=== PATIENT | female | born 1945 | race Caucasian/White ===

== ENCOUNTER → 2017-02-28 | Outpatient (CLI) | payer BC ==
[~2017-02-28] MED LIST: AMT10 PO; CRG625 PO; CYAN10005 PO; ELCCR115 TOP; LEVO1TAB50 PO; LISI10TA PO; LRS20 PO; LRT5 PO; PRLSR20 PO; ULT/50 PO
--- NOTE | 2017-02-28 16:40 | MAMMOGRAPHY REPORT ---
BILATERAL DIGITAL SCREENING MAMMOGRAM WITH CAD: 02/28/2017 CLINICAL HISTORY: Routine screening. Patient has no complaints. TECHNIQUE: Bilateral CC and MLO views were obtained. Current study was also evaluated with a Comput er Aided Detection (CAD) system. COMPARISON: Comparison is made to exams dated: 09/07/2016 mammogram, 03/07/2016 ultrasound, 6 mammogram, 02/26/2016 mammogram, 02/24/2015 mammogram, and 02/21/2014 mammogram - [facility]. BREAST COMPOSITION: There are scattered areas of fibroglandular density in both breasts. FINDINGS: There is a stable 6 mm nodular asymmetry in the far posterior right breast on the CC view , that appears stable in size dating back to at least 02/21/2014, therefore considered benign. No n ew suspicious mass, architectural distortion or cluster of microcalcifications is seen bilaterally. IMPRESSION: ACR BI-RADS CATEGORY 1: NEGATIVE There is no mammographic evidence of malignancy. A 1 year screening mammogram is recommended. The p atient will receive written notification of the results. Approximately 10% of breast cancers are not detected with mammography. A negative mammographic repor t should not delay biopsy if a clinically suggestive mass is present. Yaona Krishnamurthy M.D. ay/:02/28/2017 15:51:33 Community Pharmacist: Elli SELF)(M), [facility] letter sent: Normal 1/2 BI-RADS Code: ACR BI-RADS Category 1: Negative
== END | disposition home or self-care (01) ==
LOC: C.MAMM 10:28
PROVIDERS: ATTEND Family Medicine
DX: Z12.31 Encounter for screening mammogram for malignant neoplasm of breast (principal)

== ENCOUNTER → 2018-03-01 | Outpatient (CLI) | payer BC ==
--- NOTE | 2018-03-01 14:43 | MAMMOGRAPHY REPORT ---
BILATERAL DIGITAL SCREENING MAMMOGRAM TOMOSYNTHESIS WITH CAD: 03/01/2018 CLINICAL HISTORY: Routine screening. TECHNIQUE: Breast tomosynthesis in addition to standard 2D mammography was performed. Current study was also evaluated with a Computer Aided Detection (CAD) system. COMPARISON: Comparison is made to exams dated: 02/28/2017 mammogram, 02/26/2016 mammogram, 02/24/2015 sujit mogram, 02/21/2014 mammogram, 02/20/2013 mammogram, and 02/20/2012 mammogram - [facility]. BREAST COMPOSITION: There are scattered areas of fibroglandular density in both breasts. FINDINGS: No suspicious masses, calcifications, or areas of architectural distortion are noted in ei ther breast. There has been no significant interval change compared to prior exams. IMPRESSION: ACR BI-RADS CATEGORY 1: NEGATIVE There is no mammographic evidence of malignancy. A 1 year screening mammogram is recommended. The pa tient will receive written notification of the results. Approximately 10% of breast cancers are not detected with mammography. A negative mammographic report should not delay biopsy if a clinically suggestive mass is present. Marni Carbajal M.D. ah/:03/01/2018 12:01:59 Communications Director: Sal BACH(R)(M), [facility] letter sent: Normal 1/2 BI-RADS Code: ACR BI-RADS Category 1: Negative
== END | disposition home or self-care (01) ==
LOC: C.MAMM 11:09
PROVIDERS: ATTEND Family Medicine
DX: Z12.31 Encounter for screening mammogram for malignant neoplasm of breast (principal)

== ENCOUNTER 2023-09-06 09:18 | Observation (INO) ==
[~2023-09-06 09:18] MED LIST changes: -AMT10 PO; -CRG625 PO; -CYAN10005 PO; -ELCCR115 TOP; -LEVO1TAB50 PO; +LIDOCAINE 1% LOCAL 20 ML VIAL ONE; -LISI10TA PO; -LRS20 PO; -LRT5 PO; -PRLSR20 PO; -ULT/50 PO; +VANCOMYCIN HCL 1000MG/20ML VIAL ONE; +WATER, STERILE FOR INJ 10 ML VIAL ONE
--- NOTE | 2023-09-06 12:21 | History & Physical Bridge Note ---
Date of Service September 06, 2023 History & Physical Bridge Note I have examined the patient, reviewed the History & Physical and in the interval since the performance of the History & Physical I have noted the following changes of clinical significance: no changes noted
--- NOTE | 2023-09-06 12:22 | Pre Anesthesia Assessment ---
Date of Service September 06, 2023 Pre Sedation Assessment Vital Signs Pulse Resp BP Pulse Ox O2 Del Method 09/06/23 09:35 66 18 212/104 H 96 Room Air Cardiovascular RRR, no murmur, no edema Respiratory normal respiratory effort, lungs clear to auscultation Pre-Sedation Airway Assessment Smoking Status: Never smoker Hx Sleep Apnea: No Hx Difficult Intubation: No Short, Thick Neck: No Thyromental Distance: < 3.5 Finger Breadths Oral Cavity: + Dentures Mallampati Class: III ASA: ASA3 NPO Status Date of Last Intake of Fluids: 09/05/23 Date of Last Intake of Solid Food: 09/05/23 Procedure Planning Contraindications for Sedation: none Current Medications Reviewed: Yes Notes The planned sedation has been discussed with the patient. Informed Consent was obtained. I have identified the patient, determined the appropriateness of sedation and have assessed the patient immediately prior to the procedure. All medicine(s) and interventions are by my order.
[2023-09-06] MEDS ORDERED: fentaNYL citrate PF 100 MCG/2 ML VIAL ONE (12:23)
[2023-09-06] MEDS ORDERED: MIDAZOLAM HCL 5 MG/ML 1 ML VIAL ONE (12:23)
[2023-09-06] MEDS ORDERED: ceFAZolin 330 MG/ML 1 GM VIAL ONE (12:23)
--- NOTE | 2023-09-06 13:57 | Post Anesthesia Assessment ---
Date of Service September 06, 2023 Post Sedation Assessment Vital Signs Pulse Resp BP Pulse Ox O2 Del Method 09/06/23 09:35 66 18 212/104 H 96 Room Air Recovery Score Activity: Moves 4 extremities Respiration: Deep Breath/Cough Circulation: +/-20% PreAnes Value Consciousness: Fully Awake Oxygen Saturation: > 92% On Room Air Discharge Sedation Level of Care: Fast Track Phase II Post Sedation Plan On clinical assessment, the patient appears to have tolerated the sedation without complications. Patient is recovering as anticipated. Patient will continue to be monitored by nursing and may be discharged when isael tion discharge criteria are met per below protocol. Upon Completions of procedure up to 15 minutes continue every 5 minute vital signs and the P.A.R. score; then discharge to a Phase I or Fast Track to Phase II per the following guidelines: * Discharge Patient to appropriate Phase II area if PAR is 8 or greater or return to pre- procedure baseline. The post - procedure orders will be as directed. * If PAR score is less than 8 or not return to pre-procedure baseline then patient will follow Phase I monitoring till PAR is reached for Phase II. The Phase I may be done in procedure room or may call to secure a Phase I area. * If naloxone or flumazenil are used for reversal, hold in Phase I for continued monitoring from when last reversal dose was given for a minimum of 60 minutes or longer pending the nurse and/or physician discretion of patient condition before discharge to Phase II. Please call the Sedation Physician to re-evaluate and complete post-note for discharge to Phase II area. Do NOT discharge from procedure sedation or Phase 1 until post- sedation evaluation note is complete by procedure /sedation MD Sedation Discharge Instructions to be given to the patient at discharge to home.
--- NOTE | 2023-09-06 14:11 | Operative Report ---
Post Operative Report DICTATED BY:Susy Frances D.O. DATE OF PROCEDURE: 09/06/2023. PREOPERATIVE DIAGNOSES: Sick sinus syndrome POSTOPERATIVE DIAGNOSIS: Sick sinus syndrome PROCEDURE: A dual-chamber rate responsive permanent pacemaker and intracardiac electrogram His bundle recordings, along with a peripheral venogram under fluoroscopic guidance. SURGEON: Susy Frances DO ASSISTANTS: None. ANESTHESIA: Monitored conscious sedation administered under my supervision by Larissa Reyes. Start time 12:49, end time 13:55, a total of 5 mg of Versed and 100 mcg of fentanyl. INTRAVENOUS FLUIDS: 118 mL. CONTRAST: 30 mL. ANTIBIOTICS: 1 grams of Ancef. BLOOD LOSS: 80 mL. URINE OUTPUT: Not applicable. SPECIMENS: None. FINDINGS: See below. DRAINS: None. COMPLICATIONS: None. CONDITION: Stable. INDICATIONS: This is a 78-year-old female who has a past medical history for SSS, chronic heart failure with preserved EF, NYHA Class II, HTN, Mild MR, LIU, CKD stage III, Multiple lung nodules, Hypothyroidism, Hyperparathyroidism, GERD, Anxiety. Due to her worsening sick sinus syndrome, she was recommended a pacemaker. CONSENT: Consent was obtained prior to the patient going into the electrophysiology lab. The patient was informed of the risks, benefits, and alternatives to the procedure. Risks include, but not limited to, sudden cardiac , cardiac arrhythmias, cerebrovascular accident, myocardial infarction, injury to his blood vessels, chamber of the heart and lung, bleeding and infection. The patient understood these risks and agreed to the procedure as planned. Informed consent was obtained. DESCRIPTION OF PROCEDURE: The patient was brought into electrophysiology lab in a fasting state. She was connected to continuous cardiac monitoring. A timeout was performed to ensure the patient's identity and procedure correctly. She was prepped and draped in the left infraclavicular space in normal surgical standard fashion. Monitored conscious sedation was given throughout the procedure for the patient's comfort level. [place] precautions were maintained throughout the procedure. Prophylactic antibiotics were given prior to incision. A 20 mL of 1% lidocaine and bupivacaine mixture were given in the left deltopectoral groove. An incision was made in the left deltopectoral groove. Blunt dissection was performed down to the pectoralis muscle. Then, using blunt dissection over the pectoralis muscle within the pectoral fascia, a pacemaker po cket was created. Then, a peripheral venogram was performed to identify the axillary vein. Venous axillary access was obtained however i was having difficulty getting venous access so I repeated the peripheral venogram and the axillary vein was slightly more cranial then on the first. I then was able to get axillary venous access without any problems. A guidewire was inserted without any resistance. A 7-Venezuelan sheath was inserted over the guidewire without any resistance. Dilator was removed and a second guidewire was inserted through the sheath to allow for retained venous access. The dilator was flushed and prepped back over a 7 Venezuelan sheath, then we inserted over one of the guidewires. The guidewire and dilator were removed. Then, the His C315 sheath was inserted through the 7-Venezuelan sheath over a Glidewire into the right ventricle. The Glidewire and dilator were removed. Then, the left bundle lead was advanced through the His C315 sheath and intracardiac electrogram His bundle recordings were performed when the camera was in BARRIOS 10. Once I found where the His bundle is, see below for results, I then moved the camera to BARRIOS 30 and marked where the His bundle was on my fluoroscopy screen. I came down about 2 cm from this in a line that would extend out to the apex and then started coming on pacing. Once I found an area where I had a nice W formed pace complex in my lead V1, I then moved the camera to MARY ANNE 30 and started giving a series of clockwise turns to screw the lead into the septum pausing once in a while to see how my pacing complex changed. Once I developed a nice R prime, I then gave contrast through the sheath to see how far the lead was into the septum and then I slit the His C315 sheath under fluoroscopic guidance and left the 7-Venezuelan sheath in while I positioned the right atrial lead. A second 7-Venezuelan sheath was inserted over the retained guidewire, the guidewire and dilator removed. The right atrial lead was then advanced into right atrium and positioned into right atrial appendage under fluoroscopic guidance. There was adequate pacing and sensing thresholds and no diaphragmatic stimulation with high output pacing. The 7-Venezuelan sheath was peeled away and the lead was fixated to the pectoralis muscle using 0 silk suture. The 7-Venezuelan sheath around the left bundle lead was peeled away and the lead was fixated to pectoralis muscle using 0 silk suture. The pocket was flushed with copious amounts of vancomycin and saline wash and inspected for hemostasis. The leads were then attached to the pulse generator making sure the pins were in appropriate position, passed set screws, and set screws were all tightened. Pulse generator was then placed in the antibiotic pouch followed then by being placed in the pocket, making sure the leads were lying flat beneath the device. The incision was closed in a 3-layer fashion using 2-0 Vicryl interrupted suture, followed by 3-0 Vicryl interrupted suture, followed by 4-0 Monocryl running stitch. Then a primaseal dressing was placed. EQUIPMENT: 1. Pulse generator is a [employer] Fenwick XT DR BELEN Jerome [id number], serial number [id number]. 2. Right atrial lead, Medtronic 5076-52 cm, serial number [id number]. 3. Left bundle lead, Medtronic 3830-69 cm, serial number [id number]. 4. Tyrx pouch Ref [id number]; Lot number [id number] INTRAPROCEDURAL FINDINGS: 1. Intracardiac electrogram His bundle recordings, AH is 106 milliseconds, HV is 41 milliseconds. 2. Right atrial lead, P waves 6.2 millivolts, impedance 613 ohms, threshold 0.7volts at 0.5 milliseconds. 3. Left bundle lead, R waves 4.8 millivolts, impedance 807 ohms, threshold 0.5 volts at 0.5 milliseconds. FINAL MEASUREMENTS THROUGH THE DEVICE: 1. Right atrial lead, P waves 2.4 millivolts, impedance 494 ohms, threshold 1 volt at 0.4 milliseconds. 2. Left bundle lead, R waves 4.1 millivolts, impedance 703 ohms, threshold 0.75 volts at 0.4 milliseconds. FINAL PARAMETERS: MVP-R 60/130, right atrial amplitude 3.5 volts, pulse width 0.4 milliseconds, sensitivity 0.3 millivolts. Left bundle lead amplitude 3.5 volts, pulse width 0.4 milliseconds, sensitivity 1.2 millivolts. IMPRESSION: Successful dual chamber rate responsive permanent pacemaker under fluoroscopic guidance along with peripheral venogram and intracardiac electrogram His bundle recordings, all under fluoroscopic guidance secondary to sick sinus syndrome. PLAN: Monitor the patient post-procedure. A 12-lead ECG, chest x-ray. Recheck the device in a few hours. She is not to lift the left elbow or left shoulder for 1 month. She cannot lift more than 10 pounds with the left arm for 2 weeks. She is to keep the dressing on and dry until her wound check next week.
--- NOTE | 2023-09-06 16:40 | XRay Report ---
XR chest 1V portable CLINICAL HISTORY: Status post pacemaker insertion. Evaluate for pneumothorax. COMPARISON STUDY: Chest radiograph November 21, 2019. FINDINGS: Interval placement of a dual-lead left subclavian pacer is noted. There is a small left pne umothorax. Superior pleural separation measures 8 mm. There is no evidence for pulmonary edema. No pl eural effusion. No consolidation is identified. There is a probable hiatal hernia. IMPRESSION: Interval placement of a dual-lead left subclavian pacemaker. Small left pneumothorax wit h pleural separation of 8 mm. Short-term radiographic follow-up is recommended. This finding will be called/faxed to the ordering provider at time of dictation. ACT 112: Negative or not required by law. Electronically signed by: Guilherme Carroll M.D. 09/06/2023 4:39 PM
[2023-09-07] MEDS: ACETAMINOPHEN 325 MG TAB PO PRN ×2 (00:08→12:33)
--- NOTE | 2023-09-07 09:20 | XRay Report ---
XR chest 2V PA/lateral HISTORY: 78 years-old Female left pneumothorax s/p ppm status post placement of a left subclavian pa cer COMPARISON: 09/06/2023 TECHNIQUE: PA and lateral views of the chest FINDINGS: Status post placement of a dual lead left subclavian pacer. Mild hyperinflation with diaphragmatic fl attening. Stable size of the small left apical pneumothorax with pleural separation of 8 mm. Cardiac silhouette is mildly enlarged. Mild chronic interstitial coarsening. No pleural effusion or airspace consolidation. Bones appear intact. IMPRESSION: Unchanged small left apical pneumothorax. ACT 112: Negative or not required by law. The above report was generated using voice recognition software. It may contain grammatical, syntax o r spelling errors. Electronically signed by: Raymond Laurent M.D. 09/07/2023 9:18 AM
--- NOTE | 2023-09-07 11:47 | Cardiology Progress Note ---
Date of Service September 07, 2023 Assessment & Plan (1) Pneumothorax on left: (2) Pacemaker: (3) HTN (hypertension): Plan 78-year-old female status post pacemaker insertion for sick sinus syndrome doing well with normal device function Small left apical pneumothorax on the left unchanged from postprocedural x-ray. No symptoms or hemodynamic compromise Plan: Patient to ambulate today if clinically stable discharged home later this afternoon on medications as listed. Admission and Anticipated Discharge Date Admission Date: September 06, 2023 Subjective Patient seen and examined, chart, medications, telemetry reviewed. No arrhythmias overnight Only minor incisional discomfort no chest pains pleuritic discomfort or shortness of breath No dizziness or lightheadedness. Pneumothorax small and unchanged on chest x-ray this morning. Pacemaker functioning appropriately Review of Systems Review of Systems: All systems reviewed & are unremarkable except as noted in Subjective Physical Exam Constitutional: WD/WN, vitals as above Eyes: PERRL, conjunctivae normal, anicteric sclerae ENMT: external ear and nose normal, oropharynx normal Neck: trachea midline, no thyromegaly Respiratory: normal respiratory effort, lungs clear to auscultation Cardiovascular: Rate/Rhythm: regular rate Vessels: no JVD Extremities: no edema Chest (Breasts): Chest: + pacemaker (Pacemaker site/incision clean without hematoma) Results & Data Vital Signs (Past 12 Hours) Vital Signs Temp Pulse Pulse Resp BP Pulse Ox O2 Del Method 09/07/23 10:58 75 09/07/23 09:30 Room Air 09/07/23 06:14 36.7 C 77 18 167/78 H 100 Non-rebreather 09/07/23 04:00 36.8 C 78 18 103/72 100 Room Air O2 Flow Rate 09/07/23 10:58 09/07/23 09:30 15 09/07/23 06:14 15 09/07/23 04:00 Diagnostic Findings Chest x-ray stable with very small 8 mm pneumothorax above pacer insertion site. Otherwise no changes. No worsening from prior evening
--- NOTE | 2023-09-07 12:12 | Electrocardiogram Report ---
Test Reason : Blood Pressure : / mmHG Vent. Rate : 060 BPM Atrial Rate : 060 BPM P-R Int : 240 ms QRS Dur : 072 ms QT Int : 430 ms P-R-T Axes : 000 039 036 degrees QTc Int : 430 ms Atrial-paced rhythm with prolonged AV conduction Nonspecific T wave abnormality Abnormal ECG When compared with ECG of 21-NOV-2019 10:12, Electronic atrial pacemaker has replaced Sinus rhythm Nonspecific T wave abnormality now evident in Anterior leads Confirmed by Saud Martinez ([id number]) on 09/07/2023 12:12:16 PM Referred By: Susy Frances Confirmed By:Saud Martinez
--- NOTE | 2023-09-08 10:50 | Discharge Summary ---
Date of Service September 07, 2023 Admission HPI Per Admitting Provider Pt admitted for elective ppm due to SSS. Admission Exam (Per Admitting) Constitutional WD/WN, vitals as above Eyes PERRL, conjunctivae normal, anicteric sclerae ENMT external ear and nose normal, oropharynx normal Respiratory normal respiratory effort, lungs clear to auscultation Cardiovascular Rate/Rhythm: + bradycardic Gastrointestinal (Abdomen) normal bowel sounds, soft, nontender, no hepatosplenomegaly Musculoskeletal no cyanosis or clubbing, extremities motor strength 5/5 Skin no rashes, warm and dry Neurologic patellar DTR's 2+ bilat, sensation intact Discharge Data Procedures Performed Operation Date: 09/06/23 10:30 Actual Procedures p Pacer with A/V Leads (Dual) - DO neyda Garcia Bundle of his Recording - DO neyda Garcia Venogram, Unilateral - Susy Frances DO Hospital Course (1) Pneumothorax on left: pt had ppm complicated with left PTX. She was admitted overnight kept on non- rebreather; repeat cxr next morning showed stable PTX. Pt ambulated without any problems and was discharged home. (2) SSS (sick sinus syndrome): s/p ppm for wound check next week
== END 2023-09-07 16:07 | disposition home or self-care (01) ==
LOC: EP 09:18 → 2E 09:18

== ENCOUNTER 2025-06-07 10:05 | Observation (INO) ==
--- NOTE | 2025-06-07 10:28 | Emergency Department Note ---
History of Present Illness General Chief complaint: Fall Stated complaint: FALL A WEEK AGO, RIB PAIN Time Seen by Provider: 06/07/25 10:18 History of Present Illness Maximum Pain Intensity: 5 This is an 80-year-old female who presents to the emergency department via private vehicle accompanied by daughter with complaints of "fall a week ago, right sided rib pain". The patient notes that 1 week ago she sustained a mechanical fall. She has a history of falls. She notes right upper back/right sided rib pain status post fall that occurred 1 week ago. This was on last Monday. She notes pain worsening since that time. No central chest pain. No dyspnea. No cough. No hemoptysis. No fevers or chills. No preceding or current illness. Patient denies striking the head or loss of consciousness. No headache or neck pain. There is no abdominal pain. No low back pain. No pain in the arms or legs. No weakness. Home Medications Medication Instructions Recorded Confirmed Type albuterol sulfate 90 mcg/actuation 2 puff inhalation Q4 PRN Shortness 11/21/19 06/07/25 History aerosol inhaler Of Breath amoxicillin 500 mg capsule 2,000 mg PO ONCE PRN DENTAL 11/21/19 06/07/25 History PROCEDURE aspirin 81 mg chewable tablet 81 mg PO QAM 11/21/19 06/07/25 History atorvastatin 10 mg tablet (Lipitor) 10 mg PO QAM 11/21/19 06/07/25 History losartan 100 mg tablet 50 mg PO DAILY 11/21/19 06/07/25 History metoprolol tartrate 25 mg tablet 25 mg PO BID 11/21/19 06/07/25 History montelukast 10 mg tablet 10 mg PO HS 09/06/23 06/07/25 History celecoxib 200 mg capsule (Celebrex) 200 mg PO BID PRN pain #60 caps 07/03/24 06/07/25 Rx bupropion HCl 300 mg 24 hr tablet, 300 mg PO QAM 05/20/25 06/07/25 History extended release fluticasone fur. 100 mcg-umeclid 1 inh inhalation QAM 05/20/25 06/07/25 History 62.5 mcg-vilant 25 mcg inhalat.powder (Trelegy Ellipta) torsemide 10 mg tablet 10 mg PO QAM 05/20/25 06/07/25 History cyanocobalamin (vitamin B-12) 1,000 mcg sublingual DAILY 06/07/25 06/07/25 History 1,000 mcg sublingual tablet levothyroxine 50 mcg tablet 50 mcg PO DAILYBB 06/07/25 06/07/25 History venlafaxine 75 mg capsule,extended 75 mg PO QAM 06/07/25 06/07/25 History release 24 hr Allergies Allergy/AdvReac Type Severity Reaction Status Date / Time No Known Allergies Allergy Unknown Verified 06/07/25 13:31 Past Med/Surg History Problem List (Updated 06/07/25 @ 15:30 by Robert Stewart PA-C) Hemothorax on right (Acute) Rib pain on right side (Acute) Fall (Acute) Multiple fractures of ribs of right side (Acute) Cervical spine crepitus Cervical myelopathy Neck pain Lumbar compression fracture Disc degeneration, lumbar Cervical spondylosis SSS (sick sinus syndrome) Pacemaker Pneumothorax on left Right rotator cuff tendonitis Low back pain Right leg pain IT band syndrome Tendonitis of left rotator cuff Hyperkalemia Lung mass (Acute) HTN (hypertension) Family History Other Family history non-contributory Social History Smoking Status: Never smoker Second Hand Exposure: No; Do You Dip or Chew Tobacco: No; Hx Alcohol Use: No Hx Substance Use: No Preferred Language: Maltese Communication Ability: Effective 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 Beliefs That Will Affect Care: None marital status: Current Living Situation: Spouse current occupational status: retired Feels Safe at Home: Yes Assistive Devices: Denture - Upper, Denture - Lower and Glasses Review of Systems A total of 10 systems reviewed and were otherwise negative Physical Exam Vital Signs Vital Signs - 24 hr 06/07/25 10:11 06/07/25 10:18 06/07/25 11:39 Temperature 36.6 C Temperature Source Temporal Artery Scan Pulse Rate 98 H 80 Pulse Rate [Right Finger] 87 Pulse Rhythm [Right Finger] Regular Pulse Strength [Right Finger] Normal Respiratory Rate 20 16 Respiratory Effort / Characteristics Non-Labored Spontaneous Non-Labored Respiratory Depth Normal Normal Respiratory Pattern Regular Regular Blood Pressure 124/86 Blood Pressure [Right Arm] 180/76 H Blood Pressure Mean 98 Blood Pressure Mean [Right Arm] 110 Blood Pressure Position Sitting Blood Pressure Position [Right Arm] Lying Pulse Oximetry 95 99 Oxygen Delivery Method Room Air Room Air Sepsis Recent Fever Within 48 Hours No Sepsis New/Unexplained Change in Mental Status N/A Sepsis Action Taken by Nursing No Action Required 06/07/25 12:06 06/07/25 14:08 06/07/25 15:08 Temperature 36.6 C Temperature Source Oral Pulse Rate 81 Pulse Rate [Right Finger] 81 81 Pulse Rhythm [Right Finger] Regular Regular Pulse Strength [Right Finger] Normal Normal Respiratory Rate 16 17 16 Respiratory Effort / Characteristics Non-Labored Non-Labored Respiratory Depth Normal Normal Respiratory Pattern Regular Regular Blood Pressure 124/69 Blood Pressure [Right Arm] 137/73 122/91 Blood Pressure Mean Blood Pressure Mean [Right Arm] 94 101 Blood Pressure Position Blood Pressure Position [Right Arm] Lying Lying Pulse Oximetry 96 96 95 Oxygen Delivery Method Room Air Room Air Room Air Sepsis Recent Fever Within 48 Hours Sepsis New/Unexplained Change in Mental Status Sepsis Action Taken by Nursing VITAL SIGNS - Vital signs and nursing notes were reviewed. Stable and afebrile. GENERAL -80-year-old female appearing her stated age. Communicates well with provider and answers questions appropriately. SKIN - Gross examination of the entire body surface demonstrates no lacerations to the body surface. HEAD - Normocephalic, Atraumatic. No Garza's Sign or Raccoon's Eyes. No depressed skull fractures palpable. EYES - PERRL with EOMI bilaterally. Without subconjunctival hemorrhage. Palpebral conjunctiva pink and moist with no injection. Well-healed laceration to the right anterior forehead. No dehiscence. No surrounding erythema or edema. EARS - No deformities of external structures noted on gross examination bilaterally. No hemotympanum present. No tympanic perforation noted. Handle of malleus, umbo, cone of light, pars tensa/flaccid all easily visualized. NOSE - Midline and without cyanosis. No epistaxis or clear watery discharge noted. Septum midline without deviation. No septal hematoma noted. No overlying ecchymosis noted. MOUTH/OROPHARYNX - Without perioral cyanosis. Tongue midline with equal elevation of palate bilaterally. No blood noted in the oropharynx. No tonsillar hypertrophy, erythema, or exudates noted. No dental fractures noted. NECK - No tenderness to palpation over the cervical spinous processes. No cervical paraspinal muscle tenderness noted. LUNGS - Chest wall symmetric without accessory muscle use, intercostals retractions, or central cyanosis. No flail chest or depressed fractures noted. No paradoxical chest wall movements noted. Tenderness noted to the right scapular region/ribs just inferior to the right scapula and right lateral ribs. No step-off. No crepitus. No deformity. No open wounds. Normal vesicular breath sounds CTA B/L. No wheezes, rales, or rhonchi appreciated. CARDIAC - RRR with S1/S2. No murmur, rubs, or gallops appreciated. ABDOMEN - Abdominal contour normal and without pulsations or visible masses. BS normoactive all four quadrants. No rebound tenderness or guarding noted. Negative [place]'s or [place]'s Signs. No tenderness, palpable masses, hepatosplenomegaly, or ascites noted. EXTREMITIES - No gross deformities noted of the extremities. +5/5 strength noted in UE/LE bilaterally. NEUROLOGIC - Cranial nerves II through XII grossly intact. PSYCH -alert, oriented and pleasant on examination. Course Administered Medications Sodium Chloride (Nss) 1,000 mls @ 80 mls/hr IV .[id number] [facility] Stop: 06/08/25 02:44 Last Admin: 06/07/25 14:14 Dose: 80 mls/hr Documented By: CYNDI Discontinued Medications Lidocaine (Lidocaine 5% 1 Patch) 1 patch TD NOW STA Stop: 06/07/25 14:10 Last Admin: 06/07/25 14:14 Dose: 1 patch Documented By: CYNDI Medical Decision Making Laboratory Data 06/07/25 10:39 06/07/25 10:39 Lab Results 06/07/25 06/07/25 Range/Units 10:39 10:43 WBC 9.52 (4.8-10.8) K/ul RBC 4.09 L (4.20-5.40) M/uL Hgb 12.1 (12.0-16.0) g/dl POC Hgb 12.9 (12.0-16.0) g/dl Hct 37.5 (37.0-47.0) % POC Hct 38 (37-47) % MCV 91.7 (80.0-100.0) fL MCH 29.6 (25.0-34.0) pg MCHC 32.3 (32.0-36.0) g/dL RDW Std Deviation 45.8 (36.4-46.3) fL RDW Coeff of Kay 13.8 (11.5-14.5) % Plt Count 291 (130-400) K/uL MPV 10.5 (9.4-12.4) fL Immature Gran % (Auto) 0.4 % Neut % (Auto) 74.8 % Lymph % (Auto) 13.1 % [place] % (Auto) 8.5 % Eos % (Auto) 2.9 % Baso % (Auto) 0.3 % Neut # (Auto) 7.11 H (1.40-6.50) K/uL Lymph # (Auto) 1.25 (1.20-3.40) K/uL [place] # (Auto) 0.81 H (0.11-0.59) K/uL Eos # (Auto) 0.28 (0.00-0.50) K/uL Baso # (Auto) 0.03 (0.00-0.20) K/uL Immature Gran # (Auto) 0.04 (0.01-0.20) K/uL POC Sodium 138 (135-144) mmol/L Sodium 136 (136-145) mmol/L POC Potassium 4.2 (3.3-5.0) mmol/L Potassium 4.0 (3.5-5.1) mmol/L POC Chloride 99 L (101-112) mmol/L Chloride 99 (98-107) mmol/L Carbon Dioxide 26 (21-32) mmol/L POC Total CO2 27 (24-31) mmol/L Anion Gap 11 (3-11) POC Anion Gap 18.0 (16-25) mmol/L POC BUN 29 H (7-18) mg/dl BUN 30 H (6-23) mg/dl Creatinine 2.24 H (0.6-1.2) mg/dl POC Creatinine 2.4 H (0.6-1.3) mg/dl Est Cr Clr Drug Dosing 19.0 ml/min eGFR 21.64 BUN/Creatinine Ratio 13.4 (10-20) Glucose 95 (70-99(Fasting)) mg/dl POC Glucose (other) 93 (70-99) mg/dl Calcium 9.4 (8.6-10.3) mg/dl POC Ioniz Calcium Miguel 1.16 (1.12-1.32) mmol/l Total Bilirubin 0.5 (0.2-1.0) mg/dl AST 23 (13-39) U/L ALT 28 (7-52) U/L Alkaline Phosphatase 97 (34-104) U/L Total Protein 7.6 (6.0-8.3) gm/dl Albumin 3.8 (3.4-5.0) gm/dl Globulin 3.8 (2.5-4.0) gm/dl Albumin/Globulin Ratio 1.0 (0.9-2) Imaging Data Radiologist's Impression: Chest CT 06/07/25 10:46 EXAM: CT Chest Without Intravenous Contrast INDICATION: Fell 1 week ago. Right rib and upper back pain. TECHNIQUE: Axial computed tomography images of the chest without intravenous contrast. Sagittal and coronal reformatted images were created and reviewed. This CT exam was performed using one or more of the following dose reduction techniques: automated exposure control, adjustment of the mA and/or kV according to patient size, and/or use of iterative reconstruction technique. COMPARISON: No relevant prior studies available. FINDINGS: Limitations: None. Lungs and pleural spaces: Atelectasis noted in both lower lobes right greater than left. Trace slightly dense right basilar pleural effusion. No pneumothorax. Right basilar atelectasis. No mass. Heart: Cardiomegaly noted. Cardiac pacing device noted. Metallic artifact limits assessment of lead integrity. Mediastinum: Normal contour. Thyroid: No abnormality noted. Bones/joints: There are acute nondisplaced fractures of the right lateral 4th through 7th ribs. Thoracic vertebra are demineralized. There is kyphoscoliosis. There is diffuse spondylosis. No spinal fracture noted. Soft tissues: No significant abnormality noted. Vasculature: No abnormality noted. No thoracic aortic aneurysm. Lymph nodes: Few reactive mediastinal lymph nodes present. IMPRESSION: 1. There are acute nondisplaced fractures of the right lateral 4th through 7th ribs. 2. Trace right hemothorax. No pneumothorax. ACT 112: N/A Electronically signed by Tracey Anderson 06-07-2025 11:23 AM MDM Narrative Patient was seen and evaluated as above in room C11b. Review was performed of triage nursing notes and vital signs. I did review pertinent previous visits and patient history. After obtaining a thorough history and physical examination the above work up was performed. Patient presents to us today for evaluation of worsening right upper back and right lateral rib pain status post fall that occurred 1 week ago. The patient is well-appearing and nontoxic on examination. Vital signs are stable. She is hypertensive. No hypoxia. No tachycardia. Patient does not have any other findings on examination to suggest additional injury. She has a benign abdomen. She has no headache or neck pain. No C- spine tenderness. There is no tenderness overlying the inferior flanks or L- spine area. There is no spinous processes tenderness throughout the C, T or L- spine. Patient moving all extremities well. Patient was offered analgesia and respectfully declined. [id number] does show evidence of elevation of creatinine at 2.4. We will change the CT scan to without contrast. There is no leukocytosis or concerning anemia. No emergent metabolic disturbance but will note evidence of CKD with creatinine 2.24. CT scan of the chest as above. There are acute nondisplaced fractures of the right lateral 4th through 7th ribs. Trace right hemothorax. No pneumothorax. This injury occurred 1 week ago. The patient has no pain while at rest. Upon recheck she is in the room eating a lollipop. Daughter is at bedside. 11:50am-I did conversed via [employer] message with Dr. Rosario of pulmonology. We reviewed the case. Recommendation was transfer. 12:00-I discussed with the patient and daughter at bedside the recommendation for transfer. This would typically be to a tertiary care center with trauma capabilities. The patient and daughter noted they do not wish to be transferred. They wish to be able to stay here. They note it would create a great burden on the patient and stress as the patient's is at home with significant medical issues. They are aware regarding the indication for transfer recommendation and wish to stay here at this time. I will respect their wishes. 1243 -I did converse with Dr. Rosario again regarding the patient and family's wishes to stay here and not be transferred. We discussed how the patient is saturating well on room air, not requiring supplemental O2 and essentially has no pain at rest. I then discussed the case with the hospitalist service. I do believe the patient would benefit from a short course of rehabilitation to help with ADLs and healing. Case discussed with hospitalist service. Please refer to further documentation regarding her stay. GCS: 15 In the evaluation and treatment of this patient the following differential diagnoses were entertained: Rib fracture, pneumothorax, hemothorax, pulmonary contusion, among others. Impression & Plan Multiple fractures of ribs of right side, Fall, Rib pain on right side, Hemothorax on right Discharge Plan Visit Data Chief Complaint: Fall Stated Complaint: FALL A WEEK AGO, RIB PAIN ED Provider: [facility] ED Midlevel Provider: Robert Stewart Discharge Problem: Multiple fractures of ribs of right side, Fall, Rib pain on right side, Hemothorax on right Patient Disposition: Admitted As Inpatient Condition: Good Discharge Instructions Interventions: ED Discharge Assessment Last Done: 06/07/25 15:08 Forms Stand Alone Forms: [facility] [employer] Prescriptions Prescriptions: No Action celecoxib [Celebrex] 200 mg capsule 200 mg PO BID PRN (Reason: pain) Qty: 60 1RF amoxicillin 500 mg Capsule 2,000 mg PO ONCE PRN (Reason: DENTAL PROCEDURE) atorvastatin [Lipitor] 10 mg Tablet 10 mg PO QAM aspirin 81 mg Tablet,Chewable 81 mg PO QAM albuterol sulfate 90 mcg/actuation Hfa Aerosol Inhaler 2 puff INHALATION Q4 PRN (Reason: Shortness Of Breath) losartan 100 mg Tablet 50 mg PO DAILY metoprolol tartrate 25 mg Tablet 25 mg PO BID montelukast 10 mg tablet 10 mg PO HS torsemide 10 mg tablet 10 mg PO QAM bupropion HCl 300 mg tablet extended release 24 hr 300 mg PO QAM Trelegy Ellipta 100-62.5-25 mcg blister with device 1 inh INHALATION QAM cyanocobalamin (vitamin B-12) 1,000 mcg Tablet, Sublingual 1,000 mcg SUBLINGUAL DAILY venlafaxine 75 mg capsule,extended release 24hr 75 mg PO QAM levothyroxine 50 mcg tablet 50 mcg PO DAILYBB Referrals Referrals: Giovanna Granger, [Primary Care Provider] -
[2025-06-07 10:52] LABS: Hematocrit (blood only) 37.5 % (37.0-47.0); Hemoglobin 12.1 g/dl (12.0-16.0); Immature Granulocytes # (auto) 0.04 K/uL (0.01-0.20); Immature Granulocytes % (auto) 0.4 %; Mean Corpuscular Hemoglobin 29.6 pg (25.0-34.0); Mean Corpuscular Volume 91.7 fL (80.0-100.0); Platelet Count 291 K/uL (130-400); RDW Standard Deviation 45.8 fL (36.4-46.3); Red Blood Count 4.09 M/uL (4.20-5.40); White Blood Count 9.52 K/ul (4.8-10.8)
--- NOTE | 2025-06-07 11:24 | CT Scan Report ---
EXAM: CT Chest Without Intravenous Contrast INDICATION: Fell 1 week ago. Right rib and upper back pain. TECHNIQUE: Axial computed tomography images of the chest without intravenous contrast. Sagittal and coronal reformatted images were created and reviewed. This CT exam was performed using one or more of the following dose reduction techniques: automated exposure control, adjustment of the mA and/or kV according to patient size, and/or use of iterative reconstruction technique. COMPARISON: No relevant prior studies available. FINDINGS: Limitations: None. Lungs and pleural spaces: Atelectasis noted in both lower lobes right greater than left. Trace slightly dense right basilar pleural effusion. No pneumothorax. Right basilar atelectasis. No mass. Heart: Cardiomegaly noted. Cardiac pacing device noted. Metallic artifact limits assessment of lead integrity. Mediastinum: Normal contour. Thyroid: No abnormality noted. Bones/joints: There are acute nondisplaced fractures of the right lateral 4th through 7th ribs. Thoracic vertebra are demineralized. There is kyphoscoliosis. There is diffuse spondylosis. No spinal fracture noted. Soft tissues: No significant abnormality noted. Vasculature: No abnormality noted. No thoracic aortic aneurysm. Lymph nodes: Few reactive mediastinal lymph nodes present. IMPRESSION: 1. There are acute nondisplaced fractures of the right lateral 4th through 7th ribs. 2. Trace right hemothorax. No pneumothorax. ACT 112: N/A Electronically signed by Tracey Anderson 06-07-2025 11:23 AM
[2025-06-07 11:25] LABS: Alanine Aminotransferase 28.0 U/L (7-52); Albumin Globulin Ratio 1.0 (0.9-2); Alkaline Phosphatase 97.0 U/L (34-104); Anion Gap 11.0 (3-11); Bilirubin,Total 0.5 mg/dl (0.2-1.0); Blood Urea Nitrogen 30.0 mg/dl (6-23); Calcium 9.4 mg/dl (8.6-10.3); Carbon Dioxide 26.0 mmol/L (21-32); Chloride 99.0 mmol/L (98-107); Creatinine Clr Calc Pharmacy 19.0 ml/min; Globulin 3.8 gm/dl (2.5-4.0); Glucose 95.0 mg/dl (70-99(Fasting)); Potassium 4.0 mmol/L (3.5-5.1); Sodium 136.0 mmol/L (136-145); Total Protein 7.6 gm/dl (6.0-8.3)
--- NOTE | 2025-06-07 11:43 | Emergency Department Note ---
ED Visit Note I was consulted by the Advanced Practice Provider, Robert Stewart PA-C. I performed a substantive portion of the visit. This includes aspects of: History: Patient is an 80-year-old female presenting with right sided rib and back pain. Patient reportedly fell over a week ago. She is not on any anticoagulation or antiplatelet therapy. She reports over the last week pain has gotten progressively worse with any sort of exertion. She is pain-free at rest. She denies any lightheadedness or dizziness. Denies any significant shortness of breath. MDM: - Laboratory workup interpreted by myself showed normal WBC; normal hemoglobin; stable electrolytes; elevated creatinine (cr 2.24 - last documented in [place] system is 1.53) - CT chest wo contrast showed nondisplaced fractures of the right lateral 4th through 7th ribs with a trace right hemothorax. No pneumothorax noted. - Patient was offered pain medication in the emergency department, but she declined. 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 - FELIPE Stewart cussed the case with master automotive technician on-call, Dr. Rosario. Please see his documentation. In summary, pulmonology had recommended initially to transfer the patient, but after further discussion and their review of the imaging, they feel comfortable with the patient staying here. Family does not feel comfortable with the patient being transferred. - Patient to be admitted to the inpatient hospitalist service for PT/OT assessment and potential placement. .
--- NOTE | 2025-06-07 13:06 | History & Physical Report ---
Date of Service June 07, 2025 Assessment & Plan (1) Fall: (2) Multiple fractures of ribs of right side: (3) Hemothorax on right: (4) Acute kidney injury: (5) CKD (chronic kidney disease), stage III: (6) Vulvovaginal candidiasis: (7) HTN (hypertension): (8) Hypothyroidism: (9) Mild persistent asthma: (10) Depression: Plan 80 year old female with PMH significant for hyperparathyroidism due to renal insufficiency, hypothyroidism, LIU noncompliant with CPAP, mild persistent asthma, paraesophageal hernia, hypertension, history of SVT, CKD III, GERD, RLS, depression, anxiety, and insomnia who presented to the ED on 06/07/2025 after suffering a fall one week ago and is being admitted for rib fractures and ARSENIO. Recurrent falls Acute rib fractures Trace hemothorax Patient with recurrent falls due to legs giving out who is getting evaluated by Neurology at the end of this month Fall one week ago into furniture impacting patient's right side CT chest revealed acute nondisplaced fractures of the right lateral 4th through 7th ribs and trace hemothorax Right shoulder x-ray pending Patient hemodynamically stable without respiratory distress ED provider discussed case with Dr Rosario who recommended transfer but patient and daughter refused - agreed that patient is stable enough to stay here Pain control with lidocaine patch and PRN tylenol PT/OT consults ARSENIO on CKD III Creat 2.24 on admission (baseline creat around 1.7 per records) Follows with [facility] Nephrology last seen 05/09/2025 Hold home torsemide and celebrex Avoid nephrotoxic agents 1L NSS ordered Recheck BMP in am Vaginal itching Reports vaginal itching x2 weeks, denies dysuria Completed course of Augmentin a few days ago for UTI Obtain UA Fluconazole 150mg x1 dose Hypertension Continue losartan Hold torsemide in setting of ARSENIO Hypothyroidism Continue levothyroxine Mild persistent asthma Follows with [facility] Pulmonology last seen 08/07/2024 Continue inhalers Depression Continue bupropion and venlafaxine DVT Prophylaxis: SQ Heparin Code Status: FULL CODE - As per discussion at bedside with the patient. PCP: Giovanna Granger Disposition: admit to med surg Patient seen in collaboration with Dr Piers. Please see addendum. I spent a total of 75 minutes coordinating, documenting and providing care for this patient excluding time spent in the performance of separately billed services or time spent by another provider/QHP. Admission and Anticipated Discharge Date Admission Date: 06/07/2025 History of Present Illness Chief Complaint: rib pain Primary Care Provider: Giovanna Granger DO 80 year old female with PMH significant for hyperparathyroidism due to renal insufficiency, hypothyroidism, LIU, mild persistent asthma, paraesophageal hernia, hypertension, history of SVT, CKD III, GERD, RLS, depression, anxiety, and insomnia who presented to the ED on 06/07/2025 after suffering a fall one week ago. Patient reports that she fell last Monday into the bottom of her couch where the legs are and also hit the base of a standing lamp on the right side of her body from shoulder to chest. Denies hitting her head. Notes pain in her right shoulder and ribs that have worsened over the course of the week. Does not have pain at rest but has pain with any movement. Also reports pain in her right shoulder with overhead movement like washing hair. Took one celebrex last night before bed, which seemed to help, but otherwise is not taking pain medication. Sought evaluation due to lack of improvement in pain. Also had a fall on 05/20/2025 where she did hit her head without intracranial bleeding but needed 16 sutures into a head laceration. She reports that she has been having recurrent falls, sometimes as frequently as twice per week. She states she never is dizzy or lightheaded and always maintains consciousness throughout the fall. She notes that her legs go weak on her and then she cannot stop herself from falling. She says she sometimes has shaking of her bilateral hands for 10-15 sec that precedes her legs giving out in which case she tries to get safely seated. She reports she is seeing Neurology at the end of the month for further evaluation. She denies fevers, chills, cough, cold symptoms, chest pain, SOB, abdominal pain, N/V/D. Reports vaginal itchiness in the setting of recent UTI for which she completed a 7 day course of Augmentin. Denies current dysuria. Allergies Allergy/AdvReac Type Severity Reaction Status Date / Time No Known Allergies Allergy Unknown Verified 06/07/25 13:31 Home Medications Medication Instructions Recorded Confirmed Type albuterol sulfate 90 mcg/actuation 2 puff inhalation Q4 PRN Shortness 11/21/19 06/07/25 History aerosol inhaler Of Breath amoxicillin 500 mg capsule 2,000 mg PO ONCE PRN DENTAL 11/21/19 06/07/25 History PROCEDURE aspirin 81 mg chewable tablet 81 mg PO QAM 11/21/19 06/07/25 History atorvastatin 10 mg tablet (Lipitor) 10 mg PO QAM 11/21/19 06/07/25 History losartan 100 mg tablet 50 mg PO DAILY 11/21/19 06/07/25 History metoprolol tartrate 25 mg tablet 25 mg PO BID 11/21/19 06/07/25 History montelukast 10 mg tablet 10 mg PO HS 09/06/23 06/07/25 History celecoxib 200 mg capsule (Celebrex) 200 mg PO BID PRN pain #60 caps 07/03/24 06/07/25 Rx bupropion HCl 300 mg 24 hr tablet, 300 mg PO QAM 05/20/25 06/07/25 History extended release fluticasone fur. 100 mcg-umeclid 1 inh inhalation QA 05/20/25 06/07/25 History 62.5 mcg-vilant 25 mcg inhalat.powder (Trelegy Ellipta) torsemide 10 mg tablet 10 mg PO QAM 05/20/25 06/07/25 History cyanocobalamin (vitamin B-12) 1,000 mcg sublingual DAILY 06/07/25 06/07/25 History 1,000 mcg sublingual tablet levothyroxine 50 mcg tablet 50 mcg PO DAILYBB 06/07/25 06/07/25 History venlafaxine 75 mg capsule,extended 75 mg PO QAM 06/07/25 06/07/25 History release 24 hr Past Med/Surg History Problem List (Updated 06/07/25 @ 17:32 by CATA Ortiz) Depression Vulvovaginal candidiasis Acute kidney injury CKD (chronic kidney disease), stage III Mild persistent asthma LIU (obstructive sleep apnea) Hypothyroidism Hemothorax on right (Acute) Fall (Acute) Multiple fractures of ribs of right side (Acute) HTN (hypertension) Medical History (Updated 06/07/25 @ 17:32 by CATA Ortiz) SVT (supraventricular tachycardia) Hyperparathyroidism due to renal insufficiency Lung mass Hyperkalemia Tendonitis of left rotator cuff IT band syndrome Right leg pain Low back pain Right rotator cuff tendonitis Pneumothorax on left Pacemaker SSS (sick sinus syndrome) Rib pain on right side Cervical spondylosis Disc degeneration, lumbar Lumbar compression fracture Neck pain Cervical myelopathy Cervical spine crepitus Family History Other Family history non-contributory Social History Smoking Status: Never smoker Second Hand Exposure: No; Do You Dip or Chew Tobacco: No; Tobacco Cessation Education Requested by Patient: No Hx Alcohol Use: No Hx Substance Use: No Preferred Language: Uzbek Communication Ability: Effective Carpentry Specialist Required: No Beliefs That Will Affect Care: None marital status: Current Living Situation: Spouse current occupational status: retired Other Information That Helps Us Care for You: No Feels Safe at Home: Yes Safety Concerns: Feels Safe At This Time Assistive Devices: Cane, Glasses, Hearing Aid - Bilateral, Hospital Bed and Walker Review of Systems Review of Systems: All systems reviewed & are unremarkable except as noted in HPI & below Physical Exam Physical Exam: General/Psych: WD/WN, sitting up in bed, NAD, conversing easily Head: normocephalic, atraumatic Eyes: normal inspection, PERRL, conjunctivae pink ENT: external ear and nose normal, oropharynx normal Neck: normal visual inspection, trachea midline Respiratory: normal respiratory effort, lungs clear to auscultation, no wheeze/rales/rhonchi, no accessory muscle use Cardiovascular: regular rate and rhythm, no murmur/rub/gallop, no JVD Extremities: no cyanosis or clubbing, normal peripheral pulses, no BLE edema Abdomen/GI: normal bowel sounds, soft, nontender, no hepatosplenomegaly Neurologic/MSK: A+Ox3, motor strength 5/5, moves all extremities Skin: no rashes, normal color, warm and dry Results & Data Results & Data Vital Signs (Past 12 Hours) Vital Signs Temp Pulse Pulse Resp BP BP Pulse Ox 06/07/25 12:06 81 16 137/73 96 06/07/25 11:39 80 06/07/25 10:18 87 16 180/76 H 99 06/07/25 10:11 36.6 C 98 H 20 124/86 95 O2 Del Method 06/07/25 12:06 Room Air 06/07/25 11:39 06/07/25 10:18 Room Air 06/07/25 10:11 Room Air Laboratory Results Short CBC 06/07/25 Range/Units 10:39 WBC 9.52 (4.8-10.8) K/ul Hgb 12.1 (12.0-16.0) g/dl Hct 37.5 (37.0-47.0) % Plt Count 291 (130-400) K/uL BMP 06/07/25 10:39 Sodium 136 Potassium 4.0 Chloride 99 Carbon Dioxide 26 BUN 30 H Creatinine 2.24 H Glucose 95 Calcium 9.4 Liver Function 06/07/25 Range/Units 10:39 Total Bilirubin 0.5 (0.2-1.0) mg/dl AST 23 (13-39) U/L ALT 28 (7-52) U/L Alkaline Phosphatase 97 (34-104) U/L Albumin 3.8 (3.4-5.0) gm/dl I have independently reviewed and interpreted patient's admitting labs including CBC, CMP Diagnostic Findings Chest CT 06/07/25 10:46 EXAM: CT Chest Without Intravenous Contrast INDICATION: Fell 1 week ago. Right rib and upper back pain. TECHNIQUE: Axial computed tomography images of the chest without intravenous contrast. Sagittal and coronal reformatted images were created and reviewed. This CT exam was performed using one or more of the following dose reduction techniques: automated exposure control, adjustment of the mA and/or kV according to patient size, and/or use of iterative reconstruction technique. COMPARISON: No relevant prior studies available. FINDINGS: Limitations: None. Lungs and pleural spaces: Atelectasis noted in both lower lobes right greater than left. Trace slightly dense right basilar pleural effusion. No pneumothorax. Right basilar atelectasis. No mass. Heart: Cardiomegaly noted. Cardiac pacing device noted. Metallic artifact limits assessment of lead integrity. Mediastinum: Normal contour. Thyroid: No abnormality noted. Bones/joints: There are acute nondisplaced fractures of the right lateral 4th through 7th ribs. Thoracic vertebra are demineralized. There is kyphoscoliosis. There is diffuse spondylosis. No spinal fracture noted. Soft tissues: No significant abnormality noted. Vasculature: No abnormality noted. No thoracic aortic aneurysm. Lymph nodes: Few reactive mediastinal lymph nodes present. IMPRESSION: 1. There are acute nondisplaced fractures of the right lateral 4th through 7th ribs. 2. Trace right hemothorax. No pneumothorax. ACT 112: N/A Electronically signed by Tracey Anderson 06-07-2025 11:23 AM Code Status & VTE Plan Code Status Full Code Supervising Physician Co-Signing Physician Notes Attending Addendum: Case reviewed with the advanced practitioner. I have personally performed a history and physical examination on the patient. I have reviewed the advanced practitioner's documentation on the date of service referenced in note, and I agree with, and take responsibility for the plan of care. please refer to her notes for full details patient seen and examined, records reviewed by myself as well on exam, patient Seen sitting up in bed, having her dinner, comfortable, not in distress States pain is currently well-controlled denies shortness of breath, dizziness, central chest pain, fevers or chills no problems with urination no other symptoms VS noted and reviewed oriented x 3 , not in distress, speaks in sentences with no effort nor accessory muscle use normal rate, regular rhythm, no murmurs clear breath sounds bilaterally non distended, soft, nontender no bipedal edema, erythema, warmth no neuro deficits all labs, imaging noted and reviewed ASSESSMENT AND PLAN> Acute right 4th-7th rib fractures Trace right hemothorax Status post mechanical fall - ER physician discussed case with the abrasive grader Dr. Jackson who recommended transfer, but patient and family prefer to stay [facility] for now - Hemodynamically stable, on room air Pain control with Tylenol as needed, patient declines narcotic medications, NSAIDs contraindicated in light of hemothorax Lidoderm patch ordered Incentive spirometry Repeat chest x-ray in the morning Mild acute kidney injury - Likely prerenal etiology - Gentle IV fluids Right shoulder pain - Shoulder x-ray ordered other diagnoses and plan of care as per advanced practitioner's notes I spent a total of 40 minutes coordinating, documenting, and providing care for this patient, excluding time spent in the performance of separately billed services or time spent by another provider/QHP. Joel Pires MD
[2025-06-07] MEDS ORDERED: ACETAMINOPHEN 325 MG TAB PO PRN (14:04)
[2025-06-07] MEDS: SODIUM CHLORIDE 0.9% 1,000 ML IV SCH (14:14)
[2025-06-07] MEDS: LIDOCAINE 5% 1 PATCH TD STA (14:14)
[2025-06-07] MEDS: FLUCONAZOLE 50 MG TAB PO ONE (15:39)
[2025-06-07] MEDS ORDERED: ALBUTEROL HFA 8 GM INHALER INH PRN (16:25)
[2025-06-07 16:40] LABS: Appearance Urine Clear (Clear); Bacteria Urine Automated None Seen (None Seen); Epithelial Cell Urine Auto 0-2 /hpf (0-2); Glucose Urine UA Negative (Negative); RBC Urine Automated 0-2 /hpf (0-2)
--- NOTE | 2025-06-07 19:37 | XRay Report ---
EXAM: XR shoulder RT min 2V routine CLINICAL HISTORY: traumatic fall TECHNIQUE: X-ray images of the right shoulder were obtained in anteroposterior (AP) and Y-view projections. COMPARISON: No prior studies available for comparison. FINDINGS: Bone Structure: Bone structure is normal and aligned. No evidence of fracture or dislocation. Humeral head is properly positioned in the glenoid fossa. No osseous lesions or abnormalities identified. A small cyst with sclerotic rim is seen in the greater tuberostity of the humerus, likely a geode. Joint Spaces: Mild degenerative changes in the glenohumeral and acromioclavicular joints with sclerosis of the articular surfaces. Soft Tissues: Irregular calcification adjacent the greater tuberosity of the humerus, likely a tendinosis. Additional Findings: No signs of osteoarthritis, bone spurs, lytic or sclerotic lesions. IMPRESSION: 1. No evidence of acute fracture or dislocation. 2. Mild degenerative changes in the glenohumeral and acromioclavicular joints . 3. Irregular calcification adjacent the greater tuberosity of the humerus, likely a tendinosis. Disclaimer: A subtle bone abnormality or fracture may not be readily apparent on X-rays, thus clinical correlation and further imaging including follow-up CT, MRI, or follow-up X-rays are advised as needed. Electronically signed by Bruce Ware 06-07-2025 7:36 PM
[2025-06-07 19:39] VITALS: RESP 16
[2025-06-07] MEDS: MONTELUKAST SODIUM 10 MG TABLET PO SCH (20:17)
[2025-06-07] MEDS: METOPROLOL TARTRATE 25 MG TAB PO SCH (20:17)
[2025-06-07] MEDS: HEPARIN SOD 5,000 UNIT/0.5 ML VIAL SQ SCH (20:17)
[2025-06-07] MEDS: REMOVE LIDODERM PATCH SCH (23:02)
[2025-06-08] MEDS: MELATONIN 3 MG TAB PO PRN (01:27)
[2025-06-08] MEDS: LEVOTHYROXINE SODIUM 50 MCG TABLET PO SCH (06:01)
[2025-06-08 07:25] LABS: Anion Gap 5.0 (3-11); Blood Urea Nitrogen 32.0 mg/dl (6-23); Calcium 8.4 mg/dl (8.6-10.3); Carbon Dioxide 29.0 mmol/L (21-32); Chloride 103.0 mmol/L (98-107); Creatinine Clr Calc Pharmacy 21.0 ml/min; Glucose 95.0 mg/dl (70-99(Fasting)); Potassium 4.7 mmol/L (3.5-5.1); Sodium 137.0 mmol/L (136-145)
[2025-06-08] MEDS ORDERED: ASPIRIN 81 MG ECTAB PO SCH (09:00)
[2025-06-08] MEDS ORDERED: NON-FORMULARY MEDICATION (Fluticasone-Umeclidin-Vilanter [Trelegy Ellipta] 100-62.5-25 mcg INH SCH (09:00)
[2025-06-08] MEDS: LOSARTAN POTASSIUM 50 MG TAB PO SCH (10:28)
[2025-06-08] MEDS: VENLAFAXINE HCL XR 75 MG CAPXR PO SCH (10:28)
[2025-06-08] MEDS: FLUTICASONE FUROATE 100MCG 14 PUFFS/INHALER INH SCH (10:29)
[2025-06-08] MEDS: ATORVASTATIN 10 MG TAB PO SCH (10:29)
[2025-06-08] MEDS: CYANOCOBALAMIN (B-12) 500 MCG TABLET PO SCH (10:29)
[2025-06-08] MEDS: UMECLIDINIUM/VILANTEROL 62.5/25MCG 7 PUFFS/INHALER INH SCH (10:29)
--- NOTE | 2025-06-08 13:41 | Hospitalist Progress Note ---
Date of Service June 08, 2025 Assessment & Plan (1) Fall: (2) Multiple fractures of ribs of right side: (3) Hemothorax on right: (4) Acute kidney injury: (5) CKD (chronic kidney disease), stage III: (6) Vulvovaginal candidiasis: (7) HTN (hypertension): (8) Hypothyroidism: (9) Mild persistent asthma: (10) Depression: Plan 80 year old female with PMH significant for hyperparathyroidism due to renal insufficiency, hypothyroidism, LIU noncompliant with CPAP, mild persistent asthma, paraesophageal hernia, hypertension, history of SVT, CKD III, GERD, RLS, depression, anxiety, and insomnia who presented to the ED on 06/07/2025 after suffering a fall one week ago and is being admitted for rib fractures and ARSENIO. Recurrent falls Acute rib fractures Trace hemothorax Fall one week ago into furniture impacting patient's right side CT chest revealed acute nondisplaced fractures of the right lateral 4th through 7th ribs and trace hemothorax Patient hemodynamically stable without respiratory distress ED provider discussed case with Dr Rosario who recommended transfer but patient and daughter refused - agreed that patient is stable enough to stay here Pain control with lidocaine patch and scheduled tylenol PT OT evaluation pending; plan to discharge her home on home PT OT ARSENIO on CKD III Creat 2.24 on admission (baseline creat around 1.7 per records) Follows with [facility] Nephrology last seen 05/09/2025 Hold home torsemide and celebrex Avoid nephrotoxic agents Vaginal itching Reports vaginal itching x2 weeks, denies dysuria Completed course of Augmentin a few days ago for UTI Obtain UA Fluconazole 150mg x1 dose Hypertension Continue losartan Hold torsemide in setting of ARSENIO Hypothyroidism Continue levothyroxine Mild persistent asthma Follows with [facility] Pulmonology last seen 08/07/2024 Continue inhalers Depression Continue bupropion and venlafaxine DVT Prophylaxis: SQ Heparin Code Status: FULL CODE - As per discussion at bedside with the patient. PCP: Giovanna Granger Disposition: Possible discharge home with home PT OT tomorrow a.m. Please note the above document was generated using voice recognition software. It may contain grammatical, syntax or spelling errors. Any formal questions or concerns about the content, text or information contained within the body of this dictation should be directly addressed to the provider for clarification Admission and Anticipated Discharge Date Admission Date: June 07, 2025 Subjective Patient seen and examined at bedside. She reports that she continues to have pain at the site of the fracture. Denies any increasing shortness of breath. She is saturating well in room air Review of Systems Review of Systems: All systems reviewed & are unremarkable except as noted in Subjective Physical Exam Physical Exam: General/Psych: WD/WN, sitting up in bed, NAD, conversing easily Chest wall; tenderness along right lateral chest wall. Respiratory: normal respiratory effort, lungs clear to auscultation, no wheeze/rales/rhonchi, no accessory muscle use Cardiovascular: regular rate and rhythm, no murmur/rub/gallop, no JVD Extremities: no cyanosis or clubbing, normal peripheral pulses, no BLE edema Abdomen/GI: normal bowel sounds, soft, nontender, no hepatosplenomegaly Neurologic/MSK: A+Ox3, motor strength 5/5, moves all extremities Skin: no rashes, normal color, warm and dry Results & Data Results & Data Vital Signs (Past 12 Hours) Vital Signs Temp Pulse Resp BP Pulse Ox O2 Del Method 06/08/25 07:07 36.7 C 70 16 157/75 H 97 Room Air
[2025-06-08] MEDS: LIDOCAINE 5% 1 PATCH TD SCH (14:10)
[2025-06-08] MEDS: ACETAMINOPHEN 325 MG TAB PO SCH (14:12)
[2025-06-08] MEDS: REMOVE LIDODERM PATCH SCH (22:14)
[2025-06-09 06:31] VITALS: TEMP 98.1
[2025-06-09 07:23] VITALS: BP 144/81; PULSE 72; O2SAT 95
[2025-06-09 11:03] LABS: Anion Gap 6.0 (3-11); Blood Urea Nitrogen 31.0 mg/dl (6-23); Calcium 9.1 mg/dl (8.6-10.3); Carbon Dioxide 27.0 mmol/L (21-32); Chloride 104.0 mmol/L (98-107); Creatinine Clr Calc Pharmacy 21.8 ml/min; Glucose 68.0 mg/dl (70-99(Fasting)); Potassium 4.2 mmol/L (3.5-5.1); Sodium 137.0 mmol/L (136-145)
--- NOTE | 2025-06-09 16:07 | Discharge Summary ---
Discharge Summary Date of Service June 09, 2025 Principal Dx & Hospital Course #1 = Principal Diagnosis (1) Fall: (2) Multiple fractures of ribs of right side: (3) Hemothorax on right: (4) Acute kidney injury: (5) CKD (chronic kidney disease), stage III: (6) Vulvovaginal candidiasis: (7) HTN (hypertension): (8) Hypothyroidism: (9) Mild persistent asthma: (10) Depression: Plan 80 year old female with PMH significant for hyperparathyroidism due to renal insufficiency, hypothyroidism, LIU noncompliant with CPAP, mild persistent asthma, paraesophageal hernia, hypertension, history of SVT, CKD III, GERD, RLS, depression, anxiety, and insomnia who presented to the ED on 06/07/2025 after suffering a fall one week ago and is being admitted for rib fractures and ARSENIO. Recurrent falls Acute rib fractures Trace hemothorax Fall one week ago into furniture impacting patient's right side CT chest revealed acute nondisplaced fractures of the right lateral 4th through 7th ribs and trace hemothorax Patient hemodynamically stable without respiratory distress ED provider discussed case with Dr Rosario who recommended transfer but patient and daughter refused - agreed that patient is stable enough to stay here Pain control with lidocaine patch and scheduled tylenol PT OT evaluation pending; plan to discharge her home on home PT OT ARSENIO on CKD III Creat 2.24 on admission (baseline creat around 1.7 per records) Follows with [facility] Nephrology last seen 05/09/2025 Hold home torsemide and celebrex Avoid nephrotoxic agents Vaginal itching Reports vaginal itching x2 weeks, denies dysuria Completed course of Augmentin a few days ago for UTI Obtain UA Fluconazole 150mg x1 dose Hypertension Continue losartan Hold torsemide in setting of ARSENIO Hypothyroidism Continue levothyroxine Mild persistent asthma Follows with [facility] Pulmonology last seen 08/07/2024 Continue inhalers Depression Continue bupropion and venlafaxine DVT Prophylaxis: SQ Heparin Code Status: FULL CODE - As per discussion at bedside with the patient. PCP: Giovanna Granger Disposition: Possible discharge home with home PT OT tomorrow a.m. Please note the above document was generated using voice recognition software. It may contain grammatical, syntax or spelling errors. Any formal questions or concerns about the content, text or information contained within the body of this dictation should be directly addressed to the provider for clarification Notes For Next Care Provider 80 year old female with PMH significant for hyperparathyroidism due to renal insufficiency, hypothyroidism, LIU, mild persistent asthma, paraesophageal hernia, hypertension, history of SVT, CKD III, GERD, RLS, depression, anxiety, and insomnia who presented to the ED on 06/07/2025 after suffering a fall one week ago. Noted to have a trace hemothorax, admitted to medicine. on medicine, patient had stable oxygenation, improved pain. Monitored for 2 days. PT/OT consulted, recommended homegoing. On 06/09/2025 patient medically stable for discharge home. To do: [ ] encourage incentive spirometry post discharge Medication Changes From Visit -see below Admission HPI Per Admitting Provider 80 year old female with PMH significant for hyperparathyroidism due to renal insufficiency, hypothyroidism, LIU, mild persistent asthma, paraesophageal hernia, hypertension, history of SVT, CKD III, GERD, RLS, depression, anxiety, and insomnia who presented to the ED on 06/07/2025 after suffering a fall one week ago. Patient reports that she fell last Monday into the bottom of her couch where the legs are and also hit the base of a standing lamp on the right side of her body from shoulder to chest. Denies hitting her head. Notes pain in her right shoulder and ribs that have worsened over the course of the week. Does not have pain at rest but has pain with any movement. Also reports pain in her right shoulder with overhead movement like washing hair. Took one celebrex last night before bed, which seemed to help, but otherwise is not taking pain medication. Sought evaluation due to lack of improvement in pain. Also had a fall on 05/20/2025 where she did hit her head without intracranial bleeding but needed 16 sutures into a head laceration. She reports that she has been having recurrent falls, sometimes as frequently as twice per week. She states she never is dizzy or lightheaded and always maintains consciousness throughout the fall. She notes that her legs go weak on her and then she cannot stop herself from falling. She says she sometimes has shaking of her bilateral hands for 10-15 sec that precedes her legs giving out in which case she tries to get safely seated. She reports she is seeing Neurology at the end of the month for further evaluation. She denies fevers, chills, cough, cold symptoms, chest pain, SOB, abdominal pain, N/V/D. Reports vaginal itchiness in the setting of recent UTI for which she completed a 7 day course of Augmentin. Denies current dysuria. Discharge Exam Gen: A&O 3 NAD HEENT: NCAT, EOMI, not icteric. External ears normal. No rhinorrhea. Moist mucous membranes. Neck: Supple, full range of motion, no observable masses, No meningeal sign. Lungs: No Respiratory distress. CV: RRR, no edema. Abdomen: Soft, nondistended, No rebound tenderness. MSK: No joint swelling, no redness. trace tenderness to palpation on right rib cage Skin: No rashes, petechiae, lesions. Normal color per patient. Neuro: Normal Gait, Grossly intact. Psych: Appropriate for situation. Updated Medication List Medication Instructions Recorded Confirmed Type albuterol sulfate 90 mcg/actuation 2 puff inhalation Q4 PRN Shortness 11/21/19 06/07/25 History aerosol inhaler Of Breath aspirin 81 mg chewable tablet 81 mg PO QAM 11/21/19 06/07/25 History atorvastatin 10 mg tablet (Lipitor) 10 mg PO QAM 11/21/19 06/07/25 History losartan 100 mg tablet 50 mg PO DAILY 11/21/19 06/07/25 History metoprolol tartrate 25 mg tablet 25 mg PO BID 11/21/19 06/07/25 History montelukast 10 mg tablet 10 mg PO HS 09/06/23 06/07/25 History celecoxib 200 mg capsule (Celebrex) 200 mg PO BID PRN pain #60 caps 07/03/24 06/07/25 Rx bupropion HCl 300 mg 24 hr tablet, 300 mg PO QAM 05/20/25 06/07/25 History extended release fluticasone fur. 100 mcg-umeclid 1 inh inhalation QAM 05/20/25 06/07/25 History 62.5 mcg-vilant 25 mcg inhalat.powder (Trelegy Ellipta) torsemide 10 mg tablet 10 mg PO QAM 05/20/25 06/07/25 History cyanocobalamin (vitamin B-12) 1,000 mcg sublingual DAILY 06/07/25 06/07/25 History 1,000 mcg sublingual tablet levothyroxine 50 mcg tablet 50 mcg PO DAILYBB 06/07/25 06/07/25 History venlafaxine 75 mg capsule,extended 75 mg PO QAM 06/07/25 06/07/25 History release 24 hr lidocaine 5 % topical patch 1 patch transdermal QAM #30 ea 06/09/25 Rx oxycodone 5 mg tablet 5 mg PO Q8H PRN pain #14 tabs 06/09/25 Rx Hospital Stay Data Consultations 06/07/25 13:11 ED Decision to Admit Stat Diagnostic Imagining Performed 06/07/25 10:46 CT chest diagnostic wo con Stat Pending Results Patient Have Any Pending Studies at Discharge: No Discharge Instructions Given to Patient (Per Discharging Provider) 1. Please follow up with PCP and pulmonology. 2. Please stay hydrated and use incentive spirometer. 3. Utilize home PT/OT. Total Time Total Time Spent Total Time Spent (In Minutes): I spent a total of 35 minutes in direct patient care, including [id number] time with the patient and/or family, reviewing medical records, ordering and reviewing diagnostic tests, and coordinating care with other healthcare providers. This time includes: history taking, physical examination, medical decision making, counseling, ECG interpretation, imaging interpretation, lab interpretation, orders, and education, excluding time spent in the performance of separately billed services.
== END 2025-06-09 13:45 | disposition home health service (06) | DRG 183 ==
LOC: ED 10:05 → SUATTDRO 14:10 → INTOOBSV 14:10 → 3N 14:10

== ENCOUNTER 2025-09-16 10:55 | Inpatient (IN) ==
--- NOTE | 2025-09-12 10:19 | Anesthesiology Consultation ---
Date of Service September 12, 2025 Assessment & Plan (1) Encounter for pre-operative examination: Chart Review Chart Review: Acceptable Risk for Surgery and Patient NOT seen in Pre Admission Testing -Pt with multiple falls 04/2025-06/2025; was most recently admitted to [facility] s/p mechanical fall; fell on her face and dx with closed LeFort I fx. Pt had also been dx with R sided rib fx and very small hemothorax s/p fall and admission [facility] 05/2025 (CXR 06/2925 showed healing R rib fx and no hemothorax). Pt saw ENT 08/18/25 with normal exam. Note: pt also saw Neuro 06/24/25: exam and testing WNL; advised pt to walk with walker and f/u with PT. Pt also follows with Cardio and has pacemaker; most recent pacer check WNL and ECHO 07/25/25 WNL. *Case d/w ; pt may proceed as scheduled. Airway will be evaluated AM of surgery (2/2 recent facial fx and cspine issues) -CBC, BMP to be checked AM of surgery (NSS currently ordered on preop fluid order 12/29 GFR 26 on 07/25/25 labs) Infectious Disease screening: Per PAT nursing assessment on 09/11/25, No known infectious disease contacts in past 10 days or current infectious disease symptoms. No recent travel outside the country. History Surgery Operation Date: 09/16/25 13:00 Proposed Procedures p Right Ankle Open Revision and Internal Fixation, Possible Syndesmosis - Kole Martinez DO Height/Weight Height: 5 ft 2.5 in Weight: 63.503 kg Allergies Allergy/AdvReac Type Severity Reaction Status Date / Time acetaminophen [From Vicodin] AdvReac Unknown Vomiting Verified 09/11/25 11:54 hydrocodone [From Vicodin] AdvReac Unknown Vomiting Verified 09/11/25 11:54 Medications Home Medications Medication Instructions Recorded Confirmed Last Taken albuterol sulfate 90 mcg/actuation 2 puff inhalation UD PRN Shortness 11/21/19 09/11/25 Unknown aerosol inhaler Of Breath aspirin 81 mg chewable tablet 81 mg PO QAM 11/21/19 09/11/25 06/07/25 atorvastatin 10 mg tablet (Lipitor) 10 mg PO QAM 11/21/19 09/11/25 06/07/25 losartan 100 mg tablet 0 mg PO QAM 11/21/19 09/11/25 06/07/25 metoprolol tartrate 25 mg tablet 25 mg PO BID 11/21/19 09/11/25 06/07/25 montelukast 10 mg tablet 10 mg PO HS 09/06/23 09/11/25 06/06/25 bupropion HCl 300 mg 24 hr tablet, 300 mg PO QAM 05/20/25 09/11/25 06/07/25 extended release fluticasone fur. 100 mcg-umeclid 1 inh inhalation UD PRN sob 05/20/25 09/11/25 06/07/25 62.5 mcg-vilant 25 mcg inhalat.powder (Trelegy Ellipta) torsemide 10 mg tablet 10 mg PO QAM 05/20/25 09/11/25 06/07/25 cyanocobalamin (vitamin B-12) 1,000 mcg sublingual DAILY 06/07/25 09/11/25 Unknown 1,000 mcg sublingual tablet levothyroxine 50 mcg tablet 0 mcg PO QAM 06/07/25 09/11/25 06/07/25 venlafaxine 75 mg capsule,extended 0 mg PO UD 06/07/25 09/11/25 06/07/25 release 24 hr oxycodone 5 mg tablet 5 mg PO Q8H PRN pain #14 tabs 06/09/25 09/11/25 Unknown celecoxib 200 mg capsule (Celebrex) 0 mg PO UD PRN pain 09/11/25 09/11/25 Unknown lidocaine 5 % topical patch 1 patch transdermal UD PRN Pain 09/11/25 09/11/25 Unknown Past Medical History Medical History (Updated 09/15/25 @ 10:53 by Korina Elizalde PA-C) Arthritis of neck full ROM cspine Asthma Cervical myelopathy Cervical spine crepitus Cervical spondylosis Chronic kidney disease, stage 3 CKD3b Depression Difficult intravenous access Disc degeneration, lumbar Dizziness pt saw neuro for w/u of multiple falls; per 06/24/25 note, 2 ambulatory EEGs were normal. No significant findings on exam or imaging; encouraged pt to walk slowly with walker and continue PT Heart valve disease per 06/2025 ECHO: Mild AR. Mild MR. Mild TR. Hemothorax on right trace R hemothorax s/p fall 05/2025 (tx [facility]) Hiatal hernia History of facial fracture closed LeFort I fx s/p fall 06/2025; saw ENT for f/u 08/18/25 and per note, "Healing well, no significant pain, nasal congestion, or breathing difficulties. No surgical intervention needed." History of fall hx frequent falls (mechanical/'legs giving out'); no LOC with any of the falls; [facility] admission 06/09/25 with R sided rib fx, most recent: 07/24-07/25/25 admitted [facility]: head lac, LeFort I fx (closed), 'mild TBI' per notes History of gastroesophageal reflux (GERD) History of rib fracture multiple R sided s/p 05/2025 (admitted [facility]) History of skin cancer hx multiple spots removed, no known current issues. History of UTI 06/2025 - treated. denies current s/s. [place] (hard of hearing) HTN (hypertension) Hyperparathyroidism due to renal insufficiency Hypothyroidism pt not sure dx details ; medication for thyroid verified with patient Low back pain on occ/no change in baseline. Lumbar compression fracture Lung mass noted after having pneumonia approx 2014; PCP has been following; per 07/24/[address]: Stable pulmonary micro nodules which are benign given long-term stability Mild asthma overall controlled per pt/at current have a cough, no other s/s. Neck pain arthrits of neck per pt, cracks. full rom. Pacemaker Poor historian Right rotator cuff tendonitis hx injections/helped it. not a current problem. Sleep apnea noncompliant with CPAP SSS (sick sinus syndrome) pt has pacemaker; follows with [facility] SVT (supraventricular tachycardia) hx of Tendonitis of left rotator cuff hx injections for/helped it, no current problem Urinary, incontinence, stress female Past Family History Family History Other Family history non-contributory Past Surgical History Surgical History (Updated 09/12/25 @ 14:15 by Korina Elizalde PA-C) History of colonoscopy History of cystocele repair hx bladder tac History of esophagogastroduodenoscopy (EGD) History of left hip replacement History of pacemaker approx t not sure details as to why pacemaker placed, voices hx falls prior to placement. pt not sure what type of pacemaker. last check approx 06/2025. History of right hip replacement History of surgery paraesophageal hernia repair, lap with mesh 01/2023 History of tubal ligation Social History Smoking Status: Never smoker Do You Dip or Chew Tobacco: No Hx Alcohol Use: No Hx Substance Use: No substance use type: does not use Testing Laboratory Results 07/25/25: WBC: 9.05 H/H: 11.3(L)/35.4(L) PLATELETS: 283 SODIUM: 133(L) POTASSIUM: 4.8 CHLORIDE: 98 CO2: 22 BUN: 24(H) CREATININE: 1.9(H) GLUCOSE: 92 Est GFR: 26 (L) Electrocardiogram Date: 05/20/25 A-paced rhythm, 75bpm NSTWA. No significant change from 09/06/23 Chest X-Ray Date: 09/04/25 Findings: + NAD Stable appearance of a L chest wall dual chamber permanent pacemaker. Echocardiogram Date: 07/25/25 EF: 65-69% LV Function: normal RWMA: + none Gr I DD. Mild AR. Mild MR. Mild TR. Stress Test Date: 08/13/20 Type: DSE Findings: + WNL DSE negative for inducible ischemia. Occasional PVCs and PACs noted with stress. Other Testing Pacemaker Check 07/19/25: Medtronic Riddhi XT No events, normal device function Battery: OK, 12.25yrs Mode: AAIR<=>DDDR A Pacin.49%, RV Pacin.04% Cervical Cpine CT 05/20/25: 1. No definite cervical spine fracture 2. Mild spinal stenosis from C3-4 through C5-6 3. Right C2-3 through C5-6 neural foramen narrowing, which may affect the exiting nerve roots MRI Auditory Canal 09/04/25: FINDINGS There is no acute infarct. There is no intracranial hemorrhage. There is no mass, mass effect or midline shift. Mild chronic muscular changes and mild global volume loss There is no abnormal enhancement. Cochlea semicircular canal each IAC are normal. There is minimal fluid in the mastoid air cells bilaterally. Each Meckel's cave is normal. Ventricles and basal cisterns are normal. There is no extra-axial fluid collection. Midline structures are normal. The arterial flow voids are normal. The dural venous sinuses are patent. Orbits are normal. Left maxilla fractures better seen on prior study paranasal sinus are patent. Calvarium is normal. There are multilevel degenerative changes in the upper cervical spine with suggestion of abnormal enhancement in the right C2-C3 facet joint only seen in the coronal images. Parotid glands are normal. Nasopharynx is normal. IMPRESSION 1. No significant intracranial abnormality. 2. Multilevel degenerative changes in the upper cervical spine with suggestion of abnormal enhancement in the right C2-C3 facet joint also seen on recent CTA neck study. Consider MRI of the cervical spine if this is a site of clinical concern
[~2025-09-16 10:55] MED LIST changes: +DEXAMETHASONE SOD INJ 4 MG/ML VIAL ONE; +GLYCOPYRROLATE 0.2 MG/ML VIAL ONE; -LIDOCAINE 1% LOCAL 20 ML VIAL ONE; +LIDOCAINE 2% 2 ML VIAL/AMP(20MG/ML) INFIL ONE; +ONDANSETRON INJ 2 MG/ML 2 ML VIAL ONE; +PROPOFOL IV EMULSION 10 MG/ML 20 ML VIAL IV ONE; +ROPIVACAINE 0.5% 5 MG/ML 30 ML VIAL ONE; -VANCOMYCIN HCL 1000MG/20ML VIAL ONE; -WATER, STERILE FOR INJ 10 ML VIAL ONE
[2025-09-16 11:19] LABS: Hematocrit (blood only) 39.2 % (37.0-47.0); Hemoglobin 13.0 g/dl (12.0-16.0); Immature Granulocytes # (auto) 0.09 K/uL (0.01-0.20); Immature Granulocytes % (auto) 0.7 %; Mean Corpuscular Hemoglobin 30.2 pg (25.0-34.0); Mean Corpuscular Volume 91.2 fL (80.0-100.0); Platelet Count 374 K/uL (130-400); RDW Standard Deviation 44.4 fL (36.4-46.3); Red Blood Count 4.30 M/uL (4.20-5.40); White Blood Count 12.82 K/ul (4.8-10.8)
[2025-09-16] MEDS: SODIUM CHLORIDE 0.9% 1000ML IV SCH (11:27)
[2025-09-16 11:43] LABS: Anion Gap 7.0 (3-11); Blood Urea Nitrogen 30.0 mg/dl (6-23); Calcium 9.9 mg/dl (8.6-10.3); Carbon Dioxide 28.0 mmol/L (21-32); Chloride 102.0 mmol/L (98-107); Creatinine Clr Calc Pharmacy 16.2 ml/min; Glucose 104.0 mg/dl (70-99(Fasting)); Potassium 4.9 mmol/L (3.5-5.1); Sodium 137.0 mmol/L (136-145)
[2025-09-16] MEDS ORDERED: BUPIVACAINE 0.25% PF 30 ML VIAL ONE (11:51)
[2025-09-16] MEDS ORDERED: ONDANSETRON INJ 2 MG/ML 2 ML VIAL IV PRN ×2 (11:54→12:44)
[2025-09-16] MEDS ORDERED: ATROPINE SULFATE 0.1 MG/ML 10ML SYR IV PRN (11:54)
[2025-09-16] MEDS ORDERED: MIDAZOLAM HCL 1 MG/ML 2ML VIAL ONE (12:36)
[2025-09-16] MEDS ORDERED: MAGNESIUM HYDROXIDE SUSP 30 ML UDC PO PRN (12:44)
[2025-09-16] MEDS ORDERED: METOCLOPRAMIDE HCL INJ 5 MG/ML 2 ML VIAL IV PRN (12:44)
[2025-09-16] MEDS ORDERED: NALOXONE HCL 0.4 MG/1 ML VIAL/CARP IV PRN (12:44)
--- NOTE | 2025-09-16 12:44 | History & Physical Bridge Note ---
Date of Service September 16, 2025 History & Physical Bridge Note I have examined the patient, reviewed the History & Physical and in the interval since the performance of the History & Physical I have noted the following changes of clinical significance: 80-year-old female presenting today for definitive management of her right ankle. The patient originally sustained an injury a little over a month ago and presented to me quite late (3.5 weeks after injury). Patient during the fall sustained a closed traumatic nondisplaced Heller B distal fibula fracture. This has gone on to partial union and a malunited position. Additionally, the patient's medial clear space of her ankle joint is noted to be wide. I do long discussion the patient when she first presented regarding the nature of this injury. We discussed in great detail the pathoanatomy, pathophysiology, treatment options. I expressed to her that given the widening of her medial clear space of her ankle, my recommendation would be for malunion takedown with open reduction internal fixation in order to more appropriately aligned the pat ient's ankle mortise. I expressed to her that surgery at this point considering it has been greater than 1 month since her date of injury will be quite a bit more difficult than if she had presented early. We did discuss nonoperative management as well. Nonoperative management would involve short amount of time nonweightbearing until more radiographic healing was seen followed by physical therapy and return to activities. My belief is that the patient is at a very high risk of posttraumatic osteoarthrosis due to the incongruity of her tibiotalar joint with this approach. We also discussed the risk of surgical management. Surgical risks include but are not limited to loss of life/limb, DVT/PE, incomplete reduction, continued pain, need for additional surgery, infection, wound healing complications, nonunion, malunion, hardware complication, hardware failure. Patient understands that her perioperative risks are higher because of her delayed presentation. After thorough discussion of the risk, benefits and alternative surgical management, the patient was interested in pursuing operative care. Her swelling is appropriate today. Surgical plan: Open reduction internal fixation right distal fibula and possible syndesmosis. Possible removal of scar tissue from the medial gutter. Patient is the primary caregiver for her and admitted to me in clinic that she would be unable to remain nonweightbearing at home while dealing with her . Because of this, I do think it is appropriate that the patient be admitted for nursing facility placement postoperatively.
[2025-09-16] MEDS ORDERED: NO NSAIDS SCH (12:45)
[2025-09-16] MEDS ORDERED: NOREPINEPHRINE BITARTRATE 1 MG/ML 4 ML VIAL IV ONE (13:30)
[2025-09-16] MEDS ORDERED: ePHEDrine sulfate 50 MG/5 ML SYR ONE (14:14)
[2025-09-16] MEDS ORDERED: PHENYLEPHRINE 100MCG/ML 5ML SYR ONE (14:15)
--- NOTE | 2025-09-16 15:14 | Fluoroscopy Report ---
FL ankle RT min 3V RTN CLINICAL HISTORY: RT ANKLE ORIF COMPARISON STUDY: No previous studies for comparison. FINDINGS: 4 intraoperative fluoroscopic spot images are provided for interpretation. 51 seconds of fl uoroscopic time was utilized. The 4 provided images demonstrate a distal fibular metallic plate fixated with multiple screws. While a definite screws are visualized, additional distal screws may be present and obscured due to overla p. IMPRESSION: Intraoperative fluoroscopic spot images demonstrating a distal fibular plate fixated wit h multiple screws. ACT 112: Negative or not required by law. Electronically signed by: Joe Morgan M.D. 09/16/2025 3:13 PM
--- NOTE | 2025-09-16 15:27 | Operative Report ---
Post Operative Report Pre & Post Diagnosis Operation Date: 09/16/25 13:00 Pre-Op Diagnosis: Ankle Fracture Right Post-Op Diagnosis: Ankle Fracture Right I identified the patient and participated in the time-out.: Yes Procedure Operation Date: 09/16/25 13:00 Actual Procedures p Right Ankle Open Revision and Internal Fixation(Right) - Kole Martinez DO 1. Open reduction internal fixation right distal fibula 2. Physician directed fluoroscopy greater than 1 hour 3. Application right below-knee splint Modifier 22: Due to the subacute nature of the patient's presentation, significant early bony healing had taken place and as such extra time and care and attention were needed in performing the surgery to takedown the callus that had already formed prior to obtaining an appropriate reduction. Surgeon Kole Martinez DO Director Design none Estimated Blood Loss 5 Findings Consistent with Post-Op Diagnosis Specimens none Indications 80-year-old female presenting today for definitive management of her right ankle. The patient originally sustained an injury a little over a month ago and presented to me quite late (3.5 weeks after injury). Patient during the fall sustained a closed traumatic nondisplaced Heller B distal fibula fracture. This has gone on to partial union and a malunited position. Additionally, the patient's medial clear space of her ankle joint is noted to be wide. I do long discussion the patient when she first presented regarding the nature of this injury. We discussed in great detail the pathoanatomy, pathophysiology, treatment options. I expressed to her that given the widening of her medial clear space of her ankle, my recommendation would be for malunion takedown with open reduction internal fixation in order to more appropriately aligned the patient's ankle mortise. I expressed to her that surgery at this point considering it has been greater than 1 month since her date of injury will be quite a bit more difficult than if she had presented early. We did discuss nonoperative management as well. Nonoperative management would involve short amount of time nonweightbearing until more radiographic healing was seen followed by physical therapy and return to activities. My belief is that the patient is at a very high risk of posttraumatic osteoarthrosis due to the incongruity of her tibiotalar joint with this approach. We also discussed the risk of surgical management. Surgical risks include but are not limited to loss of life/limb, DVT/PE, incomplete reduction, continued pain, need for additional surgery, infection, wound healing complications, nonunion, malunion, hardware complication, hardware failure. Patient understands that her perioperative risks are higher because of her delayed presentation. After thorough discussion of the risk, benefits and alternative surgical management, the patient was interested in pursuing operative care. Her swelling is appropriate today. Surgical plan: Open reduction internal fixation right distal fibula and possible syndesmosis. Possible removal of scar tissue from the medial gutter. Patient is the primary caregiver for her and admitted to me in clinic that she would be unable to remain nonweightbearing at home while dealing with her . Because of this, I do think it is appropriate that the patient be admitted for nursing facility placement postoperatively. Description of Procedure after informed consent was obtained, the patient was correctly identified in the preoperative holding suite, the operative site was marked with the surgeon's initials, the date of surgery, and the word yes. The patient was then taken to the operative suite. The department of anesthesia administered General Anesthesia. The patient was transferred from the [facility] to the operative table. All bony prominences were well-padded. Briefing and timeout was performed. All implants were available and sterile at the time. BRIEFING AND DEBRIEFING: Pre and post operative briefing and debriefing was performed. Introductions were made, goals of the procedure were discussed, questions and concerns were addressed. The operative site markings were identified and appropriate. A time [id number] was performed, the patient's correct identity was confirmed and the correct operative sites were identified. The patients pre-operative antibiotic dosing and administration was confirmed along with other SCIP measures. The team was polled at the completion of the surgery and all team members were in agreement that the procedure was without complication, the counts are correct, the wound class was identified and suggestions for improvement were shared. after the patient was transferred in supine fashion from the hospital bed to the operative table, all bony prominences well-padded. A well-padded tourniquet was placed high on the right thigh and a bump placed under the right hip. An SCD was placed on the left lower extremity and was turned on. The right lower extremity was cleansed with a chlorhexidine scrub brush and then prepped and draped in standard sterile fashion using ChloraPrep. We began by marking out the anatomy of the distal fibula. We would plan for direct lateral approach over the distal fibula. We exsanguinated the limb, raise the tourniquet to 250 mmHg. It remained elevated for 90 minutes which proved to be the duration of the case. We began by making a direct lateral approach to the distal fibula. We incised sharply through skin and dissected bluntly through subcutaneous tissue proximally to identify protect the superficial peroneal nerve throughout the duration of the case. Once this was identified and protected, distally, we would incise sharply down to bone through the periosteum and raised periosteal flaps both anteriorly and posteriorly along the course of the distal fibula. The fracture was identified, however significant healing had already taken place. There was significant bony callus noted laterally, posteriorly, and anteriorly. We would use a series of tools including osteotomes, curettes, rongeur's, dental picks to remove callus. extra care and attention was needed during this portion of the case to ensure that we were all moving callus and not any [place] bone. Multiple releases along the distal fragment were required in order to mobilize this fragment such that we could obtain a reduction. This callus was then saved to be packed around the fracture site at the completion of the case. Once the fracture site had been adequately prepared, We would use a lobster claw reduction clamp and a [id number] reduction clamp to obtain an appropriate reduction. We checked this reduction fluoroscopically. Once the fracture was reduced, the talus reduced back onto the ankle mortise nicely and we did not need to perform any debridement of the medial gutter. once we were satisfied with the reduction, we would place a 3.5 mm cortical screw in a lag by technique technique across the fracture at a 90 degree angle. This achieved excellent compression of the fracture. Our provisional stabilization was then removed and an appropriately sized 2.7/3.5 mm anatomic locking distal fibula plate was chosen from the [employer] set. This was then templated to the lateral aspect of the patient's distal fibula and secured in place using K wires. This position was then checked fluoroscopically and once we are satisfied, proximally we would begin by drilling, measuring, and placing an appropriately sized 3.5 mm cortical screw to adhere the plate to bone. Given the patient's osteoporotic bone, we felt as if locking screws would be most appropriate for this construct, so through the guides we would drill, measure, and place appropriately sized locking screws in the proximal segment. Distally, we would drill to the guides, measured, and placed appropriate size locking screws distally. All provisional stabilization was then removed. At this point we were satisfied with our reduction and stabilization. We then would perform an external rotation stress examination. No medial clear space widening was noted, as such we opted for no syndesmotic fixation. the wound was then thoroughly irrigated. Using the callus that we had previously debrided, we would morselized this and packed this around the fracture site to use as autograft. We then began our layered closure. In the periosteal layer, a running 3-0 Monocryl was used to adhere periosteum over bone. Next, we used 4-0 nylon sutures in the skin in a vertical Algar Donati fashion. Quarter inch brown Steri-Strips were placed between each suture, the tails were pulled through. The wound was then covered with Betadine soaked Adaptic, 4 x 4's fluffs, sterile Webril. A well-padded trilaminar AO trauma below-knee splint was then placed with the ankle held in neutral dorsiflexion while the splint cured. The patient tolerated this procedure well and was transferred to the PACU in stable condition. Prior to transportation to PACU, all counts were correct and a briefing was performed at the end of the case. Physician-directed fluoroscopy for Greater than one hour was performed by myself to verify fracture alignment and the safe placement of all internal fixation. The final images saved to PACs showed views demonstrating satisfactory alignment of the fracture and stable internal fixation. Implant verification was performed by myself by reading and confirming the implant information on the packaging with the team before the sterile implants were opened. I was present for the entire procedure. Plan: Weight bearing status: nonweightbearing right lower extremity Wound care: keep splint clean and dry Range of motion: as tolerated of hip and knee VTE Prophylaxis: 81 mg aspirin p.o. twice daily Antibiotics: perioperative Ancef Pain Control: Multimodal Vitamin D Replacement: labs ordered Discharge Plan: patient will be admitted postoperatively to work on appropriate placement in nursing facility. The patient notes that she is unable to maintain nonweightbearing while at home Follow Up: with myself in 2 weeks I attest to the content of the Intraoperative Record and any orders documented therein. Any exceptions are noted below.
--- NOTE | 2025-09-16 15:52 | Anesthesiology Progress Note ---
Date of Service September 16, 2025 Anesthesia Post Procedure Vital Signs Vital Signs: Temp Pulse Pulse Resp BP BP Pulse Ox 09/16/25 15:45 71 15 136/63 93 09/16/25 15:35 72 18 141/62 H 97 09/16/25 15:25 73 14 151/61 H 99 09/16/25 15:18 36.0 C L 69 21 130/62 98 09/16/25 11:41 36.7 C 76 16 160/81 H 97 O2 Del Method O2 Flow Rate 09/16/25 15:45 Room Air 09/16/25 15:35 Oxymask 2 09/16/25 15:25 Oxymask 4 09/16/25 15:18 Oxymask 6 09/16/25 11:41 Room Air Transfer of Care Handoff Completed per policy Notes Mental Status: alert / awake / arousable Patient Amnestic to Procedure: Yes Nausea / Vomiting: adequately controlled Pain: adequately controlled Airway Patency, RR, SpO2: stable & adequate BP & HR: stable & adequate Hydration State: stable & adequate Anesthetic Complications: no major complications apparent
[2025-09-16] MEDS ORDERED: NON-FORMULARY MEDICATION (Fluticasone-Umeclidin-Vilanter [Trelegy Ellipta] 100-62.5-25 mcg INH PRN (16:23)
[2025-09-16] MEDS ORDERED: ALBUTEROL HFA 8 GM INHALER INH PRN (16:23)
[2025-09-16] MEDS: SODIUM CHLORIDE 0.9% 1,000 ML IV SCH (16:47)
--- NOTE | 2025-09-16 16:58 | Internal Medicine Consult Note ---
Date of Consultation September 16, 2025 Assessment & Plan (1) Closed right ankle fracture: Right ankle fracture S/P right ankle open revision and internal fixation by Dr. Martinez on 09/16/2025 Pain control, wound care, activity as per primary team Continue bowel regimen to prevent constipation Monitor for postop anemia Incentive spirometry PT OT when appropriate On aspirin 81 mg twice daily for DVT prophylaxis ARSENIO on CKD III Baseline creatinine 1.7-2.0 Check renal ultrasound Bladder scan as needed Hold torsemide, losartan Avoid nephrotoxic agents as able Continue IV fluids Monitor renal function Consider nephrology evaluation if no improvement Avoid NSAIDs Hypertension Losartan, torsemide on hold Continue metoprolol And add hydralazine as needed Asthma LIU--intolerant to CPAP Currently no signs of asthma exacerbation Continue home inhalers Hypothyroidism Continue levothyroxine Mood disorder Continue home medications DVT Px: on Aspirin 81 BID Code Status Full Code Disposition PT/OT prior to discharge History of Present Illness Reason for Consultation: Postop medical management Requesting Physician: Dr. Martinez Attending Physician: Kole Martinez, DO History of Present Illness Patient is a 80-year-old female with history of mood disorder, CKD stage III, asthma, LIU, hypothyroidism, hypertension, valvular heart disease, restless leg syndrome, SVT, hyperparathyroidism due to renal failure and other medical problems was consulted for postop medical management. Patient underwent right ankle open revision and internal fixation by Dr. Martinez for right ankle fracture. She denies any significant pain postoperatively. States feeling well curre ntly. Denies any chest pain, dyspnea, nausea, vomiting, abdominal pain, dizziness. Currently offers no complaints. She admits to have some numbness and tingling sensation of right foot. Allergies Allergy/AdvReac Type Severity Reaction Status Date / Time acetaminophen [From Vicodin] AdvReac Unknown Vomiting Verified 09/16/25 11:14 hydrocodone [From Vicodin] AdvReac Unknown Vomiting Verified 09/16/25 11:14 Home Medications Medication Instructions Recorded Confirmed Type albuterol sulfate 90 mcg/actuation 2 puff inhalation UD PRN Shortness 11/21/19 09/16/25 History aerosol inhaler Of Breath aspirin 81 mg chewable tablet 81 mg PO QAM 11/21/19 09/16/25 History atorvastatin 10 mg tablet (Lipitor) 10 mg PO QAM 11/21/19 09/16/25 History losartan 100 mg tablet 100 mg PO QAM 11/21/19 09/16/25 History metoprolol tartrate 25 mg tablet 25 mg PO BID 11/21/19 09/16/25 History montelukast 10 mg tablet 10 mg PO HS 09/06/23 09/16/25 History bupropion HCl 300 mg 24 hr tablet, 300 mg PO QAM 05/20/25 09/16/25 History extended release fluticasone fur. 100 mcg-umeclid 1 inh inhalation UD PRN sob 05/20/25 09/16/25 History 62.5 mcg-vilant 25 mcg inhalat.powder (Trelegy Ellipta) torsemide 10 mg tablet 10 mg PO QAM 05/20/25 09/16/25 History cyanocobalamin (vitamin B-12) 1,000 mcg sublingual DAILY 06/07/25 09/16/25 History 1,000 mcg sublingual tablet levothyroxine 50 mcg tablet 50 mcg PO QAM 06/07/25 09/16/25 History oxycodone 5 mg tablet 5 mg PO Q8H PRN pain #14 tabs 06/09/25 09/16/25 Rx celecoxib 200 mg capsule (Celebrex) 0 mg PO UD PRN pain 09/11/25 09/16/25 History lidocaine 5 % topical patch 1 patch transdermal UD PRN Pain 09/11/25 09/16/25 History Patient History Medical History Heart valve disease per 06/2025 ECHO: Mild AR. Mild MR. Mild TR. Dizziness pt saw neuro for w/u of multiple falls; per 06/24/25 note, 2 ambulatory EEGs were normal. No significant findings on exam or imaging; encouraged pt to walk slowly with walker and continue PT Asthma History of fall hx frequent falls (mechanical/'legs giving out'); no LOC with any of the falls; [facility] admission 06/09/25 with R sided rib fx, most recent: 07/24-07/25/25 admitted [facility]: head lac, [place] I fx (closed), 'mild TBI' per notes Difficult intravenous access [place] (hard of hearing) History of gastroesophageal reflux (GERD) Hiatal hernia History of rib fracture multiple R sided s/p 05/2025 (admitted [facility]) Hemothorax on right trace R hemothorax s/p fall 05/2025 (tx [facility]) History of facial fracture closed [place] I fx s/p fall 06/2025; saw ENT for f/u 08/18/25 and per note, "Healing well, no significant pain, nasal congestion, or breathing difficulties. No surgical intervention needed." Urinary, incontinence, stress female History of UTI 06/2025 - treated. denies current s/s. Sleep apnea noncompliant with CPAP Mild asthma overall controlled per pt/at current have a cough, no other s/s. Depression Chronic kidney disease, stage 3 CKD3b History of skin cancer hx multiple spots removed, no known current issues. Hypothyroidism pt not sure dx details ; medication for thyroid verified with patient HTN (hypertension) Poor historian Arthritis of neck full ROM cspine SVT (supraventricular tachycardia) hx of Hyperparathyroidism due to renal insufficiency Lung mass noted after having pneumonia approx 2014; PCP has been following; per 07/24/[address]: Stable pulmonary micro nodules which are benign given long-term stability Tendonitis of left rotator cuff hx injections for/helped it, no current problem Low back pain on occ/no change in baseline. Right rotator cuff tendonitis hx injections/helped it. not a current problem. Pacemaker SSS (sick sinus syndrome) pt has pacemaker; follows with [facility] Cervical spondylosis Disc degeneration, lumbar Lumbar compression fracture Neck pain arthrits of neck per pt, cracks. full rom. Cervical myelopathy Cervical spine crepitus Surgical History History of tubal ligation History of esophagogastroduodenoscopy (EGD) History of cystocele repair hx bladder tac History of colonoscopy History of left hip replacement History of right hip replacement History of pacemaker approx t not sure details as to why pacemaker placed, voices hx falls prior to placement. pt not sure what type of pacemaker. last check approx 06/2025. History of surgery paraesophageal hernia repair, lap with mesh 01/2023 Family History Other Family history non-contributory Social History Smoking Status: Never smoker Second Hand Exposure: No; Do You Dip or Chew Tobacco: No; Hx Alcohol Use: No Hx Substance Use: No Preferred Language: Turkish Communication Ability: Effective Feather Washer Required: No Beliefs That Will Affect Care: None marital status: Current Living Situation: Spouse current occupational status: retired Feels Safe at Home: Yes Assistive Devices: Denture - Upper, Glasses, Hearing Aid - Bilateral, Walker and Other Assistive Devices Comment: partial on lower Review of Systems Review of Systems: All systems reviewed & are unremarkable except as noted in Subjective Physical Exam Physical Exam: Physical Exam: Vitals signs as noted above General Appearance:Moderately built and nourished, no apparent distress Head: normocephalic, Atraumatic Eyes: normal inspection, EOMI Neck: supple, Trachea midline Respiratory/Chest: Normal breath sounds, CTA, No accessory muscle use Cardiovascular: S1, S2, No murmur Abdomen/GI:Soft, Non tender, Bowel sounds present Extremities/Musculoskeletal:normal inspection, no edema, right ankle in surgical dressing Neurologic/Psych:AAOX3, grossly no focal neurological deficits,+ decreased hearing Skin: normal color, warm Results & Data Vital Signs (Past 12 Hours) Vital Signs Temp Pulse Pulse Resp BP BP Pulse Ox 09/16/25 16:15 36.4 C L 77 18 147/73 H 98 09/16/25 16:10 70 20 128/65 95 09/16/25 15:55 36.4 C L 71 16 134/69 95 09/16/25 15:45 71 15 136/63 93 09/16/25 15:35 72 18 141/62 H 97 09/16/25 15:25 73 14 151/61 H 99 09/16/25 15:18 36.0 C L 69 21 130/62 98 09/16/25 11:41 36.7 C 76 16 160/81 H 97 O2 Del Method O2 Flow Rate 09/16/25 16:15 Room Air 09/16/25 16:10 Room Air 09/16/25 15:55 Room Air 09/16/25 15:45 Room Air 09/16/25 15:35 Oxymask 2 09/16/25 15:25 Oxymask 4 09/16/25 15:18 Oxymask 6 09/16/25 11:41 Room Air Laboratory Results Short CBC 09/16/25 Range/Units 10:59 WBC 12.82 H (4.8-10.8) K/ul Hgb 13.0 (12.0-16.0) g/dl Hct 39.2 (37.0-47.0) % Plt Count 374 (130-400) K/uL BMP 09/16/25 10:59 Sodium 137 Potassium 4.9 Chloride 102 Carbon Dioxide 28 BUN 30 H Creatinine 2.46 H Glucose 104 H Calcium 9.9 Diagnostic Findings --Ankle X ray:Intraoperative fluoroscopic spot images demonstrating a distal fibular plate fixated with multiple screws.
[2025-09-16] MEDS ORDERED: hydrALAZINE 10 MG TAB PO PRN (17:56)
[2025-09-16] MEDS: DOCUSATE SODIUM 100 MG CAP PO SCH (20:39)
[2025-09-16] MEDS: METOPROLOL TARTRATE 25 MG TAB PO SCH (20:39)
[2025-09-16] MEDS: SENNA 8.6 MG TAB PO SCH (20:39)
[2025-09-16] MEDS: MONTELUKAST SODIUM 10 MG TABLET PO SCH (20:40)
--- NOTE | 2025-09-16 21:11 | Ultrasound Report ---
Exam(s): US RENAL EXAM: US Retroperitoneal Limited, Renal CLINICAL HISTORY: ARSENIO. OTHER: Other Notes: Bladder: ?Small amount of debris within. Jets not detected. TECHNIQUE: Real-time limited ultrasound of the retroperitoneum with image documentation. COMPARISON: CT abdomen and pelvis with contrast dated 08/14/2013 FINDINGS: Right kidney: The right kidney measures 7.8 cm in length. There is an 8 x 6 x 7 mm cortical cyst in the midpole of the right kidney with marginal hyperechoic foci, most consistent with a cortical cysts with marginal calcifications. There is a suggestion of surrounding cortical atrophy, as noted on the previous CT examination. No stones. No hydronephrosis. Left kidney: The left kidney measures 8 cm. No stones. No hydronephrosis. Bladder: The bladder is unremarkable. IMPRESSION: Negative radiographic evaluation of the kidneys. No hydronephrosis or obstructive nephrolithiasis. Electronically signed by: Prateek Glynn MD 09/16/25 21:10 PM
[2025-09-17] MEDS: LEVOTHYROXINE SODIUM 50 MCG TABLET PO SCH (05:32)
--- NOTE | 2025-09-17 05:37 | Orthopedic Progress Note ---
Date of Service September 17, 2025 Assessment & Plan (1) Closed right ankle fracture: (2) Depression: (3) CKD (chronic kidney disease), stage III: (4) LIU (obstructive sleep apnea): (5) Hypothyroidism: Plan Patient resting comfortably this morning postoperative day #1 status post open reduction internal fixation right distal fibula. Patient is nonweightbearing on the right lower extremity She will work with PT/OT to determine appropriate discharge plan. Patient noted preoperatively that she would be unable to participate in nonweightbearing at home so I suspect she will need AIRF versus SNF. Aspirin 81mg BID DVT ppx vit D pending activity ad quinn medicine on board d/c pending recs from PT/OT Admission and Anticipated Discharge Date Admission Date: September 16, 2025 Subjective POD 1 s/p ORIF R ankle. doing well resting comfrotably Review of Systems Review of Systems: All systems reviewed & are unremarkable except as noted in HPI & below Physical Exam Physical Exam: splint c/d/i diminished sensation 2/2 block activates EHL/FHL Results & Data Vital Signs (Past 12 Hours) Vital Signs Temp Pulse Pulse Resp BP Pulse Ox O2 Del Method 09/17/25 03:17 36.7 C 87 16 178/75 H 97 Room Air 09/16/25 23:00 36.5 C 76 18 167/77 H 99 Room Air 09/16/25 20:40 Room Air 09/16/25 20:38 77 163/73 H 09/16/25 19:15 36.6 C 77 18 143/83 H 97 Room Air 09/16/25 18:22 36.7 C 78 16 154/73 H 97 Room Air
[2025-09-17] MEDS ORDERED: TORSEMIDE 10 MG TAB PO SCH (09:00)
[2025-09-17] MEDS: CYANOCOBALAMIN (B-12) 500 MCG TABLET PO SCH (09:19)
[2025-09-17] MEDS: ATORVASTATIN 10 MG TAB PO SCH (09:19)
[2025-09-17] MEDS: FLUTICASONE FUROATE 100MCG 14 PUFFS/INHALER INH SCH (09:20)
[2025-09-17] MEDS: ASPIRIN 81 MG ECTAB PO SCH (09:20)
[2025-09-17] MEDS: MULTIVITAMIN TAB PO SCH (09:20)
[2025-09-17] MEDS: UMECLIDINIUM/VILANTEROL 62.5/25MCG 7 PUFFS/INHALER INH SCH (09:20)
[2025-09-17 10:27] LABS: Hematocrit (blood only) 34.9 % (37.0-47.0); Hemoglobin 11.5 g/dl (12.0-16.0); Mean Corpuscular Hemoglobin 30.2 pg (25.0-34.0); Mean Corpuscular Volume 91.6 fL (80.0-100.0); Platelet Count 319 K/uL (130-400); RDW Standard Deviation 44.4 fL (36.4-46.3); Red Blood Count 3.81 M/uL (4.20-5.40); White Blood Count 16.46 K/ul (4.8-10.8)
[2025-09-17 10:42] LABS: Anion Gap 8.0 (3-11); Blood Urea Nitrogen 29.0 mg/dl (6-23); Calcium 9.1 mg/dl (8.6-10.3); Carbon Dioxide 24.0 mmol/L (21-32); Chloride 105.0 mmol/L (98-107); Creatinine Clr Calc Pharmacy 18.1 ml/min; Glucose 141.0 mg/dl (70-99(Fasting)); Magnesium 1.9 mg/dl (1.7-2.4); Potassium 5.0 mmol/L (3.5-5.1); Sodium 137.0 mmol/L (136-145)
[2025-09-17] MEDS: LACTATED RINGER'S 1,000 ML IV ONE (11:56)
--- NOTE | 2025-09-17 14:33 | Hospitalist Progress Note ---
Date of Service September 17, 2025 Assessment & Plan (1) Closed right ankle fracture: Plan: Right ankle fracture S/P right ankle open revision and internal fixation by Dr. Martinez on 09/16/2025 --Vit D levels pending Pain control, wound care, activity as per primary team Continue bowel regimen to prevent constipation Monitor for postop anemia Incentive spirometry PT OT recommends acute rehab On aspirin 81 mg twice daily for DVT prophylaxis Plan to discharge to rehab facility when stable Needs follow-up with orthopedics on discharge ARSENIO on CKD III Baseline creatinine 1.7-2.0 --Renal ultrasound: Negative radiographic evaluation of the kidneys. No hydronephrosis or obstructive nephrolithiasis. --Cr:2.46>>2.2 Bladder scan as needed Hold torsemide, losartan Avoid nephrotoxic agents as able Continue IV fluids Monitor renal function closely Avoid NSAIDs Slowly improving Hypertension Losartan, torsemide on hold Continue metoprolol And add hydralazine as needed Blood pressure stable today Asthma LIU--intolerant to CPAP Currently no signs of asthma exacerbation Continue home inhalers Hypothyroidism Continue levothyroxine Mood disorder Continue home medications DVT Px: on Aspirin 81 BID Code Status Full Code Disposition Rehab as able Admission and Anticipated Discharge Date Admission Date: September 16, 2025 Subjective Patient is seen and examined at bedside Sitting in chair during my encounter Denies any pain at surgical site Also denies any nausea, vomiting, chest pain, dyspnea Renal function improving Review of Systems Review of Systems: All systems reviewed & are unremarkable except as noted in Subjective Physical Exam Physical Exam: Physical Exam: Vitals signs as noted above General Appearance:Moderately built and nourished, no apparent distress Head: normocephalic, Atraumatic Eyes: normal inspection, EOMI Neck: supple, Trachea midline Respiratory/Chest: Normal breath sounds, CTA, No accessory muscle use Cardiovascular: S1, S2, No murmur Abdomen/GI:Soft, Non tender, Bowel sounds present Extremities/Musculoskeletal:normal inspection, no edema, right ankle in surgical dressing Neurologic/Psych:AAOX3, grossly no focal neurological deficits,+ decreased hearing Skin: normal color, warm Results & Data Results & Data Vital Signs (Past 12 Hours) Vital Signs Temp Pulse Resp BP Pulse Ox O2 Del Method 09/17/25 11:00 36.5 C 86 16 122/78 97 Room Air 09/17/25 07:00 36.5 C 77 16 180/77 H 98 Room Air 09/17/25 03:17 36.7 C 87 16 178/75 H 97 Room Air Laboratory Results Short CBC 09/17/25 Range/Units 09:53 WBC 16.46 H (4.8-10.8) K/ul Hgb 11.5 L (12.0-16.0) g/dl Hct 34.9 L (37.0-47.0) % Plt Count 319 (130-400) K/uL BMP 09/17/25 09:53 Sodium 137 Potassium 5.0 Chloride 105 Carbon Dioxide 24 BUN 29 H Creatinine 2.20 H Glucose 141 H Calcium 9.1
[2025-09-18 06:42] LABS: Anion Gap 6.0 (3-11); Blood Urea Nitrogen 25.0 mg/dl (6-23); Calcium 8.9 mg/dl (8.6-10.3); Carbon Dioxide 26.0 mmol/L (21-32); Chloride 106.0 mmol/L (98-107); Creatinine Clr Calc Pharmacy 21.4 ml/min; Glucose 87.0 mg/dl (70-99(Fasting)); Potassium 4.3 mmol/L (3.5-5.1); Sodium 138.0 mmol/L (136-145)
[2025-09-18 07:11] VITALS: RESP 16
--- NOTE | 2025-09-18 10:52 | Orthopedic Progress Note ---
Date of Service September 18, 2025 Assessment & Plan (1) Closed right ankle fracture: (2) Depression: (3) CKD (chronic kidney disease), stage III: (4) LIU (obstructive sleep apnea): (5) Hypothyroidism: Plan Patient resting comfortably this morning postoperative day #2 status post open reduction internal fixation right distal fibula. Patient is nonweightbearing on the right lower extremity She will work with PT/OT to determine appropriate discharge plan. Patient noted preoperatively that she would be unable to participate in nonweightbearing at home so I suspect she will need AIRF versus SNF. PT recommended AIRF yesterday. patient notes this morning she would prefer to go home. I am okay with this provided she can safely remain NWB. Aspirin 81mg BID DVT ppx vit D pending activity ad quinn medicine on board d/c pending placement Admission and Anticipated Discharge Date Admission Date: September 16, 2025 Subjective Patient is seen and examined at bedside Patient doing well this morning. She worked with PT yesterday. Review of Systems Review of Systems: All systems reviewed & are unremarkable except as noted in HPI & below Physical Exam Physical Exam: splint c/d/i SILT SPN, DPN, tibial activates EHL/FHL Results & Data Vital Signs (Past 12 Hours) Vital Signs Temp Pulse Resp BP Pulse Ox O2 Del Method 09/18/25 07:00 36.8 C 75 16 180/74 H 98 Room Air 09/17/25 23:19 36.6 C 80 18 164/74 H 96 Room Air
--- NOTE | 2025-09-18 12:55 | Hospitalist Progress Note ---
Date of Service September 18, 2025 Assessment & Plan (1) Closed right ankle fracture: Plan: Right ankle fracture S/P right ankle open revision and internal fixation by Dr. Martinez on 09/16/2025 --Vit D levels pending Pain control, wound care, activity as per primary team Continue bowel regimen to prevent constipation Monitor for postop anemia Incentive spirometry PT OT recommends acute rehab but patient prefers to be discharged home with home health On aspirin 81 mg twice daily for DVT prophylaxis Evaluated by PT, was able to maintain nonweightbearing. Discussed with orthopedics--okay to discharge home with home health Needs follow-up with orthopedics on discharge ARSENIO on CKD III Baseline creatinine 1.7-2.0 --Renal ultrasound: Negative radiographic evaluation of the kidneys. No hydronephrosis or obstructive nephrolithiasis. --Cr:2.46>>2.2> 1.8 Bladder scan as needed Hold torsemide, losartan while hospitalized Avoid nephrotoxic agents as able Continue IV fluids Monitor renal function closely Avoid NSAIDs Slowly improving Hypertension Losartan, torsemide on hold Continue metoprolol Continue to hold losartan on discharge Started on amlodipine 5 mg daily Monitor blood pressure Asthma LIU--intolerant to CPAP Currently no signs of asthma exacerbation Continue home inhalers Hypothyroidism Continue levothyroxine Mood disorder Continue home medications DVT Px: on Aspirin 81 BID Code Status Full Code Disposition Home with home health Admission and Anticipated Discharge Date Admission Date: September 16, 2025 Subjective Patient is seen and examined at bedside Denies any Right ankle pain today Discussed with orthopedics today Prefers to be discharged home with home health Denies any nausea, vomiting, chest pain, dyspnea Renal function back to baseline Review of Systems Review of Systems: All systems reviewed & are unremarkable except as noted in Subjective Physical Exam Physical Exam: Physical Exam: Vitals signs as noted above General Appearance:Moderately built and nourished, no apparent distress Head: normocephalic, Atraumatic Eyes: normal inspection, EOMI Neck: supple, Trachea midline Respiratory/Chest: Normal breath sounds, CTA, No accessory muscle use Cardiovascular: S1, S2, No murmur Abdomen/GI:Soft, Non tender, Bowel sounds present Extremities/Musculoskeletal:normal inspection, no edema, right ankle in surgical dressing Neurologic/Psych:AAOX3, grossly no focal neurological deficits,+ decreased hearing Skin: normal color, warm Results & Data Results & Data Vital Signs (Past 12 Hours) Vital Signs Temp Pulse Resp BP Pulse Ox O2 Del Method 09/18/25 07:00 36.8 C 75 16 180/74 H 98 Room Air Laboratory Results [facility] 09/18/25 05:56 Sodium 138 Potassium 4.3 Chloride 106 Carbon Dioxide 26 BUN 25 H Creatinine 1.86 H D Glucose 87 Calcium 8.9
--- NOTE | 2025-09-18 13:21 | Discharge Summary ---
Date of Service September 18, 2025 Admission HPI Per Admitting Provider 80-year-old female presenting today for definitive management of her right ankle. The patient originally sustained an injury a little over a month ago and presented to me quite late (3.5 weeks after injury). Patient during the fall sustained a closed traumatic nondisplaced Heller B distal fibula fracture. This has gone on to partial union and a malunited position. Additionally, the patient's medial clear space of her ankle joint is noted to be wide. I do long discussion the patient when she first presented regarding the nature of this injury. We discussed in great detail the pathoanatomy, pathophysiology, treatment options. I expressed to her that given the widening of her medial clear space of her ankle, my recommendation would be for malunion takedown with open reduction internal fixation in order to more appropriately aligned the patient's ankle mortise. I expressed to her that surgery at this point considering it has been greater than 1 month since her date of injury will be quite a bit more difficult than if she had presented early. We did discuss nonoperative management as well. Nonoperative management would involve short amount of time nonweightbearing until more radiographic healing was seen followed by physical therapy and return to activities. My belief is that the patient is at a very high risk of posttraumatic osteoarthrosis due to the incongruity of her tibiotalar joint with this approach. We also discussed the risk of surgical management. Surgical risks include but are not limited to loss of life/limb, DVT/PE, incomplete reduction, continued pain, need for addit ional surgery, infection, wound healing complications, nonunion, malunion, hardware complication, hardware failure. Patient understands that her perioperative risks are higher because of her delayed presentation. After thorough discussion of the risk, benefits and alternative surgical management, the patient was interested in pursuing operative care. Her swelling is appropriate today. Surgical plan: Open reduction internal fixation right distal fibula and possible syndesmosis. Possible removal of scar tissue from the medial gutter. Patient is the primary caregiver for her and admitted to me in clinic that she would be unable to remain nonweightbearing at home while dealing with her . Because of this, I do think it is appropriate that the patient be admitted for nursing facility placement postoperatively. Principal Diagnosis right ankle fracture Discharge Exam splint c/d/i SILT SPN, DPN, tibial activates EHL/FHL Discharge Data Allergies Allergy/AdvReac Type Severity Reaction Status Date / Time acetaminophen [From Vicodin] AdvReac Unknown Vomiting Verified 09/16/25 11:14 hydrocodone [From Vicodin] AdvReac Unknown Vomiting Verified 09/16/25 11:14 Consultations 09/16/25 12:44 Consult Hospitalist Routine Procedures Performed Operation Date: 09/16/25 13:00 Actual Procedures p Right Ankle Open Revision and Internal Fixation(Right) - Kole Martinez DO Ordered Studies 09/16/25 13:00 FL ankle RT min 3V RTN Routine 09/16/25 13:01 US - OR guided needle placemen Stat 09/16/25 17:44 US Renal Bladder [US renal/blad retro comp] Routine Hospital Course (1) Closed right ankle fracture: (2) Depression: (3) CKD (chronic kidney disease), stage III: (4) LIU (obstructive sleep apnea): (5) Hypothyroidism: Plan Patient resting comfortably this morning postoperative day #2 status post open reduction internal fixation right distal fibula. The patient was admitted postoperatively as originally she was concerned that she would be unable to safely remain nonweightbearing while at home. Patient did work with PT and OT and per their notes as well as the patient, she was able to perform all activities that would be needed while remaining nonweightbearing. She has requested instead to go home rather than a nursing facility. She was instructed on the importance of remaining nonweightbearing. Patient is nonweightbearing on the right lower extremity Aspirin 81mg BID DVT ppx vit D pending activity ad quinn Total Time Total Time Spent Total Time Spent (In Minutes): 20 Discharge Plan Discharge Items Patient Disposition: Home - Home Health Services Reason For Visit: Ankle Fracture Right Discharge Diagnosis: Right ankle fracture Vitamin D deficiency ARSENIO on CKD stage III Hypertension Activity: Per Instructions section Weightbearing: Right non-weightbearing Non-emergency contact: Primary Care Provider and Surgeon Call non-emergency contact if: you have any medication questions, your symptoms worsen, your pain is concerning for you and you have a fever Follow-up/Referrals: Ann-Marie England PA-C [Primary Care Provider] - (Date & Time 09/23/2025 1:00 PM Provider: Ann-Marie England PA-C [facility] ) Eaton,Kole E, DO [Surgeon] - Diet: Heart Healthy Add Attending Provider Instructions: -- Follow-up with your primary care physician Ann-Marie England PA-C in 1 week --Follow-up with your orthopedic surgeon Dr. Martinez as recommended --Hold taking torsemide, losartan until further recommendations from your primary care physician. --Monitor your blood pressure regularly as advised. Discuss with your primary care physician for further adjustment of medications as needed. -- Start taking aspirin 81 mg twice a day as recommended by orthopedic surgeon to prevent blood clots. Duration to be determined by your orthopedic surgeon. Seek immediate medical attention if your symptoms reoccur or worsen Please review medication list provided on discharge for any medication changes as instructed. Please call if you have any questions or problems. You can reach a [facility] hospitalist on duty at [facility] 24 hours a day by calling [phone] Pending Studies at Discharge: No Stand-Alone Forms: My [facility] [employer], Smoking Cessation Medications and DC Order Prescriptions: New amlodipine 5 mg Tablet 5 mg PO QAM Qty: 30 0RF docusate sodium 100 mg Capsule 100 mg PO BID PRN (Reason: constipation) Qty: 60 0RF cholecalciferol (vitamin D3) 25 mcg (1,000 unit) Capsule 25 mcg PO QAM Qty: 30 0RF Continued atorvastatin [Lipitor] 10 mg Tablet 10 mg PO QAM albuterol sulfate 90 mcg/actuation Hfa Aerosol Inhaler 2 puff INHALATION UD PRN (Reason: Shortness Of Breath) Patient Comments: haven't used for awhile metoprolol tartrate 25 mg Tablet 25 mg PO BID montelukast 10 mg tablet 10 mg PO HS bupropion HCl 300 mg tablet extended release 24 hr 300 mg PO QAM Trelegy Ellipta 100-62.5-25 mcg blister with device 1 inh INHALATION UD PRN (Reason: sob) Patient Comments: normally I don't need it ; last use has been a few weeks ago cyanocobalamin (vitamin B-12) 1,000 mcg Tablet, Sublingual 1,000 mcg SUBLINGUAL DAILY levothyroxine 50 mcg tablet 50 mcg PO QAM lidocaine 5 % adhesive patch,medicated 1 patch transdermal UD PRN (Reason: Pain) Patient Comments: no use in awhile oxycodone 5 mg tablet 5 mg PO Q8H PRN (Reason: pain) Qty: 14 0RF Changed aspirin 81 mg Tablet,Chewable 81 mg PO BID Qty: 60 0RF Held losartan 100 mg Tablet 100 mg PO QAM Hold Instructions: Hold taking until further recommendations from your primary care physician torsemide 10 mg tablet 10 mg PO QAM Hold Instructions: Hold taking until further recommendations from your primary care physician celecoxib [Celebrex] 200 mg capsule 0 mg PO UD PRN (Reason: pain) Hold Instructions: Resume on 12/28/25. Patient Comments: really don't need it, rare use Discharge Orders: Discharge Order (Routine); Ordered 09/18/25 Ordered By: Kole Martinez Admission Data Admit Date/Time: 09/16/25 12:44 Attending Provider: Kole Matrinez Admit Provider: Kole Martinez Primary Care Provider: Ann-Marie England Other Providers: Caro Woodson; Miladis Rainey I.; Terese Swan; Lv Rader; Shweta Hendrickson; Darlyn Ceballos; Issi Quinn; Sameer Felix; Kenrick Hanley; Jad Baker; Joel Pires; Haily Brantley; Hamilton Cruz; Sherron Maddox; Carline Domínguez; Mayra Fitzgerald; Enedina Conley; [place] I.; Nadeem Patterson; Kristen Li; Nohemi Robertson; Juan Knapp.; Alexis Dowling; Chaz Patel; Oma Chacon; Bing López; Melchor Mansfield; Antonio Larry; Trace Hines; Nadeem Amador; Vandana eBnitez; Benjamin Masters; Rubina Kelly; Mellisa Mckeon; Mellisa Perez; Mitchel Segura; Ministerio Hull
[2025-09-18 14:13] VITALS: BP 171/76; PULSE 72; TEMP 97.9; O2SAT 95
[2025-09-19] MEDS ORDERED: CHOLECALCIFEROL 25 MCG (1000 UNITS) TAB PO SCH (09:00)
== END 2025-09-18 15:15 | disposition home health service (06) | DRG 493 ==
LOC: ASU 10:55 → 3E 12:44